=== PATIENT | female | born 1960 | race Caucasian/White ===

== ENCOUNTER 2017-04-04 05:46 | Inpatient (IN) | payer MEDICARE, OTHER ==
[2017-03-28 16:10] VITALS: BMI 29.9
[~2017-04-04 05:46] MED LIST: DEXAMETHASONE SOD PHOSPHATE 10 MG/ML 1 ML VIAL IV ONE; HYDROmorphone 0.5 MG/0.5 ML SYRINGE IVP PRN; LACTATED RINGERS 1,000 ML IV SCH; MIDAZOLAM 2 MG/2 ML VIAL IV PRN; ONDANSETRON 4 MG/2 ML VIAL IVP ONE; SCOPOLAMINE 1.5MG/72HR PATCH TRANSDERM ONE; ceFAZolin IN SWFI 2 GM/20 ML SYRINGE IVP ONE
[2017-04-04] MEDS ORDERED: LIDOCAINE 1% 20 ML VIAL (10MG/ML) FOR IV START INTRADERMA ONE (06:23)
[2017-04-04] MEDS ORDERED: PROPOFOL 10 MG/ML 20 ML VIAL IV ONE (07:25)
[2017-04-04] MEDS ORDERED: fentaNYL (PF) 50 MCG/ML 2 ML AMP ONE (07:25)
[2017-04-04] MEDS ORDERED: LIDOCAINE 1% INJ 10MG/ML (20 ML MDV) ONE (07:25)
[2017-04-04] MEDS ORDERED: ePHEDrine SULFATE/0.9% NACL/PF 50 MG/5 ML SYRINGE IV ONE (07:25)
[2017-04-04] MEDS ORDERED: MIDAZOLAM 2 MG/2 ML VIAL ONE (07:25)
[2017-04-04] MEDS ORDERED: KETOROLAC 30 MG/ML 1 ML VIAL ONE (07:25)
[2017-04-04] MEDS ORDERED: SODIUM CHLORIDE 0.9% 50 ML with ceFAZolin 2,000 MG IV ONE ×2 (07:36)
[2017-04-04] MEDS ORDERED: ceFAZolin 1,000 MG in SODIUM CHLORIDE 0.9% 1,000 ML IRRIGATION ONE (08:10)
[2017-04-04] MEDS ORDERED: BACITRACIN 500 UNIT/GM OINT 28.4 GM TUBE TOPICAL ONE (09:04)
[2017-04-04] MEDS ORDERED: SENNOSIDES-DOCUSATE SODIUM 1 EACH TAB PO PRN (09:25)
[2017-04-04] MEDS ORDERED: HYDROcodone/APAP 5-325MG 1 EACH TAB PO PRN ×2 (09:25)
[2017-04-04] MEDS ORDERED: HYDROmorphone 1 MG/ML 1 ML SYRINGE IVP PRN ×3 (09:25)
[2017-04-04] MEDS ORDERED: ONDANSETRON 4 MG/2 ML VIAL IVP PRN (09:25)
[2017-04-04] MEDS ORDERED: TEMAZEPAM 15 MG CAP PO PRN (09:25)
[2017-04-04] MEDS ORDERED: hydrOXYzine PAMOATE 25 MG CAP PO PRN (09:25)
--- NOTE | 2017-04-04 09:29 | XR ---
Limited left ankle HISTORY: Hardware removal Single intraoperative C-arm image documents the procedure
--- NOTE | 2017-04-04 09:40 | FL ---
Fluoroscopy HISTORY: Hardware removal 1 seconds fluoroscopy time supplied to the referring clinician. 1 intraoperative C-arm images docume nt the procedure. See dictated report from orthopedic surgery.
--- NOTE | 2017-04-04 10:04 | XR ---
EXAMINATION TYPE: XR ankle limited LT DATE OF EXAM: 04/04/2017 CLINICAL HISTORY: Surgical removal of hardware of the left lower extremity. TECHNIQUE: Two views of the left leg are obtained. COMPARISON: None. FINDINGS: Postsurgical changes from hardware removal are seen of a healing right tibial fracture. The re is extensive periosteal reaction and some heterotopic ossification with a single transcortical scr ew remaining. Numerous screw tracks are seen through the distal tibia. Generalized soft tissue swelli ng is noted. Degenerative changes of the hindfoot and midfoot are mild. No new or acute fracture. IMPRESSION: Postoperative changes after surgical removal of hardware transfixing a healing left tibia l fracture.
[2017-04-04] MEDS: LACTATED RINGERS 1,000 ML IV SCH ×2 (10:48→20:13)
[2017-04-04] MEDS: ceFAZolin IN SWFI 2 GM/20 ML SYRINGE IVP SCH ×2 (18:04→23:41)
[2017-04-04] MEDS: prednisoLONE ACETATE 1% OPHTH DROPS 1 ML BTL LEFT EYE SCH (20:13)
[2017-04-04] MEDS: FLUoxetine HCL 20 MG CAP PO SCH (20:13)
[2017-04-04] MEDS: OXYBUTYNIN CHLORIDE 5 MG TAB PO SCH (20:13)
--- NOTE | 2017-04-04 21:28 | CONS ---
CONSULTATION DATE OF CONSULTATION: 04/04/2017 REASON FOR CONSULTATION: Medical management requested by Dr. Whyte. CONSULTATION: This is a pleasant 57-year-old patient. The patient is here after surgery. History is obtained by the 2 sisters at the bedside. The patient has a history of developmental delay, is legally blind. Other chronic stable medical conditions include hypertension, hyperlipidemia, osteoarthritis, hypothyroid and urinary incontinence. The patient in April of last year underwent plate and screw to the left ankle and few weeks ago there was swelling, redness. The patient got treated with antibiotics. Finally today, patient has undergone removal of the plate and screw for osteomyelitis, arthritis. The patient's leg is in a wrap. Pain is controlled. The patient's family states she has got a mental age of probably a 3rd or 4th grader. The patient is able to answer simple questions, sitting up on bed. REVIEW OF SYSTEMS: CONSTITUTIONAL: None. HEENT: Decreased vision. RESPIRATORY: None. CARDIOVASCULAR: None. GASTROINTESTINAL: None. GENITOURINARY: None. MUSCULOSKELETAL: Pain in the joints and as above. DERMATOLOGICAL: As above., HEMATOLOGIC: None. LYMPHATIC: None. PSYCHIATRY: Mental age of elementary school. NEUROLOGICAL: None. Additionally, the patient was still able to walk with a limp before the surgery. PAST HISTORY: Hyperlipidemia, hypertension, osteoarthritis, hypothyroid, developmental delay, legally blind, urinary incontinence. PAST SURGICAL HISTORY: Left eye surgery with implants, left tibia surgery with plates and screws last year. SOCIAL HISTORY: Patient lives at adult foster care in [place]. Does not smoke or drink alcohol. FAMILY HISTORY: COPD. HOME MEDICATIONS: 1. Prednisone 1% eyedrops 1 drop to left eye b.i.d. 2. Ditropan 5 mg p.o. b.i.d. 3. Multivitamin 1 tablet p.o. daily. 4. Claritin 10 mg p.o. daily. 5. Zestoretic 20/25, 1 tablet p.o. daily. 6. Synthroid 112 mcg p.o. daily. 7. Betagan 0.5% 1 drop to both eyes b.i.d. 8. Motrin 800 mg every 6 hours p.r.n. 9. Flonase 2 sprays each nostril daily. 10.Prozac 20 mg q.h.s. ALLERGIES: None. EXAMINATION: Temperature 98, pulse 116, respirations 17, blood pressure 137/74, pulse ox 93% room air. GENERAL APPEARANCE: Average built, BMI 30. Sitting up, comfortable, smiling. EYES: Pupils equal. Conjunctivae normal. HEENT: Oral cavity normal. NECK: JVD not raised. Mass not palpable. RESPIRATORY: Effort normal. LUNGS: Clear. CARDIOVASCULAR: First and second sounds normal. No edema. ABDOMEN: Soft, nontender. Liver and spleen not palpable. LYMPHATIC: No lymph nodes palpable in neck or axillae. PSYCHIATRY: The patient is able answer simple questions. She knows that she is in the hospital, knows she had some kind of surgery, could not tell me the details. EXTREMITIES: Left leg in a dressing. INVESTIGATIONS: No blood work. ASSESSMENT: 1. Left lower extremity ankle osteomyelitis with the plates and screws in place. Now that has been removed. 2. Hyperlipidemia. 3. Essential hypertension. 4. Primary osteoarthritis in different joints. 5. Hypothyroid. 6. Developmental delay since childhood childbirth. 7. Legally blind. 8. Chronic urinary stress incontinence. PLAN: Home medications to be resumed. Will give subcu heparin for DVT prophylaxis. Care was discussed with 2 sisters at the bedside. Thank you, Dr. Whyte. MMODL / IJN: [id number] /
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
[2017-04-04] MEDS: LEVOBUNOLOL HCL BOTH EYES SCH (23:47)
[2017-04-05] MEDS: LEVOTHYROXINE 112 MCG TAB PO SCH (06:16)
[2017-04-05 07:22] LABS: Basophils % (A) 0 %; Eosinophils # (A) 0.1 k/uL (0-0.7); Eosinophils % (A) 1 %; HCT 32.9 % (34.0-46.0); HGB 10.6 gm/dL (11.4-16.0); Lymphocytes # (A) 2.6 k/uL (1.0-4.8); Lymphocytes % (A) 23 %; MCH 29.3 pg (25.0-35.0); MCHC 32.3 g/dL (31.0-37.0); MCV 90.7 fL (80.0-100.0); Mean Platelet Volume 7.1; Monocytes # (A) 0.9 k/uL (0-1.0); Monocytes % (A) 8 %; Neutrophils # (A) 7.8 k/uL (1.3-7.7); Neutrophils % (A) 67 %; Platelet Count 343 k/uL (150-450); RBC 3.62 m/uL (3.80-5.40); RDW 12.8 % (11.5-15.5); WBC 11.6 k/uL (3.8-10.6)
[2017-04-05 07:37] LABS: ALT 61 U/L (9-52); AST 28 U/L (14-36); Albumin 3.4 g/dL (3.5-5.0); Alkaline Phosphatase 65 U/L (38-126); Anion Gap 5 mmol/L; Blood Urea Nitrogen 17 mg/dL (7-17); Calcium 9.6 mg/dL (8.4-10.2); Carbon Dioxide 30 mmol/L (22-30); Chloride 104 mmol/L (98-107); Glucose 113 mg/dL (74-99); Potassium 3.9 mmol/L (3.5-5.1); Sodium 139 mmol/L (137-145); Total Bilirubin 0.3 mg/dL (0.2-1.3)
[2017-04-05 08:02] LABS: C Reactive Protein 9.8 mg/L (<10.0)
[2017-04-05] MEDS: LACTATED RINGERS 1,000 ML IV SCH ×2 (09:08→18:27)
[2017-04-05] MEDS: prednisoLONE ACETATE 1% OPHTH DROPS 1 ML BTL LEFT EYE SCH ×2 (09:09→20:17)
[2017-04-05] MEDS: LISINOPRIL-HCTZ 20-25 MG 1 EACH TAB PO SCH (09:09)
[2017-04-05] MEDS: ceFAZolin IN SWFI 2 GM/20 ML SYRINGE IVP SCH ×2 (09:09→18:27)
[2017-04-05] MEDS: ENOXAPARIN 40 MG/0.4 ML SYRINGE SQ SCH (09:09)
[2017-04-05] MEDS: OXYBUTYNIN CHLORIDE 5 MG TAB PO SCH ×2 (09:10→20:17)
[2017-04-05] MEDS: LEVOBUNOLOL HCL BOTH EYES SCH ×2 (09:11→22:31)
--- NOTE | 2017-04-05 10:25 | P.PN ---
Subjective Progress Note Date: 04/05/17 Principal diagnosis: Posterolateral his left lower leg. Status post removal of hardware and I&D left lower leg. This is a 57-year-old female who is status post removal of hardware and I&D of the left lower leg. The patient is doing well from an orthopedic standpoint. She has no new complaints or concerns today. Objective - Vital Signs Vital signs: Vital Signs Temp 97.7 F 04/05/17 07:00 Pulse 82 04/05/17 07:00 Resp 16 04/05/17 07:00 BP 123/62 04/05/17 07:00 Pulse Ox 98 04/05/17 07:00 Intake & Output 04/04/17 04/05/17 04/05/17 18:59 06:59 18:59 Intake Total 1861 850 Output Total 615 Balance 1246 850 Weight 74.389 kg Intake: IV 901 350 Lactated Ringers 1,000 ml 200 350 @ 100 mls/hr IV .Q10H [facility] Rx#:[id number] Oral 960 500 Output: Urine 600 Estimated Blood Loss 15 Other: Voiding Method Bedside Commode # Voids 1 - Exam This is a pleasant 57-year-old female in no acute distress. She is alert and oriented. Exam of the lower extremities reveals a short leg splint intact on the left. She has full toe motion without difficulty or pain. Neurovascular status to the lower extremities intact. - Labs CBC & Chem 7: 04/05/17 06:53 04/05/17 06:53 Labs: Abnormal Lab Results - Last 24 Hours (Table) 04/05/17 04/05/17 Range/Units 06:53 06:53 WBC 11.6 H (3.8-10.6) k/uL RBC 3.62 L (3.80-5.40) m/uL Hgb 10.6 L (11.4-16.0) gm/dL Hct 32.9 L (34.0-46.0) % Neutrophils # 7.8 H (1.3-7.7) k/uL Glucose 113 H (74-99) mg/dL ALT 61 H (9-52) U/L Total Protein 6.0 L (6.3-8.2) g/dL Albumin 3.4 L (3.5-5.0) g/dL Microbiology - Last 24 Hours (Table) 04/04/17 08:39 Gram Stain - Preliminary Leg - Left Wound Culture - Preliminary 04/04/17 08:39 Gram Stain - Preliminary Leg - Left Wound Culture - Preliminary 04/04/17 08:39 Anaerobic Culture - Preliminary Leg - Left 04/04/17 08:39 Anaerobic Culture - Preliminary Leg - Left Assessment and Plan (1) Infected hardware in left leg Current Visit: Yes Status: Acute Code(s): T84.7XXA - INFECT/INFLM REACT DUE TO OTH INT ORTH PROSTH DEV/GRFT, INIT SNOMED Code(s): 448277457 Plan: The clinical findings are discussed the patient and her nurse. She is to continue IV antibiotics as directed. Continue the current splint. Plain discharge Friday.
[2017-04-05] MEDS: MULTIVITAMINS, THERA 1 EACH TAB PO SCH (14:38)
--- NOTE | 2017-04-05 18:45 | P.PN ---
Progress Note - Text Progress Note Date: 04/05/17 DATE OF SERVICE: 04/05/2017 PRESENTING COMPLAINT: Osteomyelitis/medical management HISTORY OF PRESENT ILLNESS: 57-year-old female with developmental delay is status post plate and screw to the left ankle has recently developed swelling and redness received antibiotic therapy and is now status post removal of plate and screws for osteomyelitis, arthritis. INTERVAL HISTORY: 04/05/2017: Patient seen in follow-up, sitting up in a chair appears comfortable patient has a developmental delay and is legally blind, states she feels good, tolerating her diet up with assistance, last BM prior to admission. REVIEW OF SYSTEMS: Done for constitutional ,cardiovascular, GI, pulmonary with relevant findings as above. CURRENT MEDICATIONS [place], Kefzol, Lovenox 40 mg subcu daily, Prozac 20 mg by mouth at bedtime, Zestoretic 20-25 one pill by mouth daily Dilaudid, Vistaril, Synthroid 112 g by mouth daily, Zofran 4 mg IV push daily, Ditropan 5 mg by mouth twice a day, senna /docusate sodium 2 tablets by mouth at bedtime when necessary, Restoril 15 mg by mouth at bedtime when necessary. PHYSICAL EXAM VITAL SIGNS: Temperature 97.7, pulse 92, respiratory rate 16, blood pressure 121/70, oxygen saturation 97% on room air. GENERAL APPEARANCE: Lying in bed, not in distress. EYES: Pupils equal. Conjunctiva normal. NECK: JVD not raised. Mass not palpable. RESPIRATORY: Respiratory effort normal. Lungs diminished to auscultation. CARDIOVASCULAR: First and second sounds normal. No edema. ABDOMEN: Soft. Liver and spleen not palpable. No tenderness. No mass palpable. PSYCHIATRY: Able to answer simple straightforward questions. Mood and affect appropriate. MUSCULOSKELETAL: Left lower extremity in a dressing. INVESTIGATIONS: White blood cell count 11.6, hemoglobin 10.6, Accu-Cheks noted ALTs 61, ASSESSMENT: -Left lower extremity ankle osteomyelitis with the plates and screws in place. Status post removal. -Hyperlipidemia. -Essential hypertension. -Primary osteoarthritis in different joints. -Hypothyroidism. -Developmental delay since childhood at childbirth. -Legally blind. -Chronic urinary stress incontinence. PLAN: Continue with current medication and treatment plan, PT and OT following. Plan of care discussed at the bedside. We will follow closely. [employer] statement: Patient was seen and examined by nurse practitioner Cande Skinner and all elements of the case discussed with attending Dr. Honeycutt
[2017-04-05] MEDS: FLUoxetine HCL 20 MG CAP PO SCH (20:17)
[2017-04-05] MEDS ORDERED: VANCOMYCIN IV PER PHARMACY 1 EACH MISC MISCELLANE PRN (21:03)
[2017-04-05] MEDS: VANCOMYCIN 1,500 MG in SODIUM CHLORIDE 0.9% 250 ML IVPB SCH (22:29)
--- NOTE | 2017-04-05 23:02 | PN ---
PROGRESS NOTE DATE OF SERVICE: 04/05/2017 ATTENDING NOTE: Patient was seen and examined by me. I discussed with my nurse practitioner, Ms. Skinner. The patient is status post removal of plate and screw from the left ankle which had developed osteomyelitis. The patient's pain is controlled. Tolerating a diet. Sitting up, comfortable. EXAMINATION: Afebrile, pulse 97, respirations 16 blood pressure 101/65. LUNGS: Clear. CARDIOVASCULAR: First and second heart sounds. Sitting up in a chair, comfortable. Dressing on the left leg. INVESTIGATION: Gram stains are pending. White count 11.6, hemoglobin 10.6. ASSESSMENT: Acute osteomyelitis of the left lower extremity, status post plate and screws being removed. The patient is currently on IV cefazolin, being followed by Dr. Devine from infectious disease and care was discussed with the patient. MMJANIEL / TYRONEN: [id number] /
[2017-04-06] MEDS: LACTATED RINGERS 1,000 ML IV SCH ×2 (00:09→12:35)
[2017-04-06] MEDS: LEVOTHYROXINE 112 MCG TAB PO SCH (05:28)
[2017-04-06] MEDS: OXYBUTYNIN CHLORIDE 5 MG TAB PO SCH ×2 (08:59→20:32)
[2017-04-06] MEDS: prednisoLONE ACETATE 1% OPHTH DROPS 1 ML BTL LEFT EYE SCH ×2 (08:59→20:32)
[2017-04-06] MEDS: LISINOPRIL-HCTZ 20-25 MG 1 EACH TAB PO SCH (08:59)
[2017-04-06] MEDS: LEVOBUNOLOL HCL BOTH EYES SCH (09:00)
[2017-04-06] MEDS: ENOXAPARIN 40 MG/0.4 ML SYRINGE SQ SCH (09:00)
--- NOTE | 2017-04-06 09:44 | P.PN ---
Subjective Progress Note Date: 04/06/17 Principal diagnosis: Posterolateral his left lower leg. Status post removal of hardware and I&D left lower leg. This is a 57-year-old female who is status post removal of hardware and I&D of the left lower leg. The patient is doing well from an orthopedic standpoint. She has no new complaints or concerns today. Objective - Vital Signs Vital signs: Vital Signs Temp 98.7 F 04/06/17 06:55 Pulse 78 04/06/17 06:55 Resp 16 04/06/17 06:55 BP 106/61 04/06/17 06:55 Pulse Ox 98 04/06/17 06:55 Intake & Output 04/05/17 04/06/17 04/06/17 18:59 06:59 18:59 Intake Total 540 1000 180 Output Total 600 Balance -60 1000 180 Intake: IV 800 Lactated Ringers 1,000 ml 800 @ 100 mls/hr IV .Q10H [facility] Rx#:[id number] Oral 540 200 180 Output: Urine 600 Other: Voiding Method Bedside Commode # Voids 3 2 # Bowel Movements 1 - Exam This is a pleasant 57-year-old female in no acute distress. She is alert and oriented. Exam of the lower extremities reveals a short leg splint intact on the left. She has full toe motion without difficulty or pain. Neurovascular status to the lower extremities intact. - Labs CBC & Chem 7: 04/05/17 06:53 04/05/17 06:53 Labs: Microbiology - Last 24 Hours (Table) 04/04/17 08:39 Gram Stain - Preliminary Leg - Left Wound Culture - Preliminary 04/04/17 08:39 Gram Stain - Preliminary Leg - Left Wound Culture - Preliminary Assessment and Plan (1) Infected hardware in left leg Current Visit: Yes Status: Acute Code(s): T84.7XXA - INFECT/INFLM REACT DUE TO OTH INT ORTH PROSTH DEV/GRFT, INIT SNOMED Code(s): 760759351 Plan: The clinical findings are discussed the patient and her nurse. She is to continue IV antibiotics as directed. Continue the current splint. Plan discharge Friday.
[2017-04-06] MEDS: MULTIVITAMINS, THERA 1 EACH TAB PO SCH (12:37)
[2017-04-06] MEDS: VANCOMYCIN 1,500 MG in SODIUM CHLORIDE 0.9% 250 ML IVPB SCH (17:40)
--- NOTE | 2017-04-06 18:35 | PN ---
PROGRESS NOTE DATE OF SERVICE: 04/06/17. ATTENDING NOTE: This patient is seen and examined by me. I discussed with my nurse practitioner, Ms. Skinner. The patient is sitting up, comfortable. Pain is controlled. Did tolerate a diet, had a bowel movement. EXAMINATION: Afebrile, pulse 78, respiration 16, blood pressure 106/61, pulse ox 98% on room air. Lungs are clear. CARDIOVASCULAR: First and second sounds normal. Dressing over the left leg. INVESTIGATIONS: No blood work from today. ASSESSMENT: Acute osteomyelitis of left lower extremity, status post plate and screws being removed. The patient is on Vancomycin. MMODL / IJN: [id number] /
--- NOTE | 2017-04-06 20:30 | P.PN ---
Progress Note - Text Progress Note Date: 04/06/17 DATE OF SERVICE: 04/06/2017 PRESENTING COMPLAINT: Osteomyelitis/medical management HISTORY OF PRESENT ILLNESS: 57-year-old female with developmental delay is status post plate and screw to the left ankle has recently developed swelling and redness received antibiotic therapy and is now status post removal of plate and screws for osteomyelitis, arthritis. INTERVAL HISTORY: 04/06/2017: Patient seen in follow-up lying in bed appears comfortable patient had a developmental delay and is blind. States she feels good tolerates her diet up with assistance. Had a BM today Patient awaiting a PICC line placement, which should occur on Friday. 04/05/2017: Patient seen in follow-up, sitting up in a chair appears comfortable patient has a developmental delay and is legally blind, states she feels good, tolerating her diet up with assistance, last BM prior to admission. REVIEW OF SYSTEMS: Done for constitutional ,cardiovascular, GI, pulmonary with relevant findings as above. CURRENT MEDICATIONS [place], Lovenox 40 mg subcu daily, Prozac 20 mg by mouth at bedtime, Zestoretic 20-25 one pill by mouth daily Dilaudid, Vistaril, Synthroid 112 g by mouth daily, Zofran 4 mg IV push daily, Ditropan 5 mg by mouth twice a day, senna / docusate sodium 2 tablets by mouth at bedtime when necessary, Restoril 15 mg by mouth at bedtime when necessary, vancomycin. PHYSICAL EXAM VITAL SIGNS: Temperature 98.7, pulse 78, respirations 16, blood pressure 106/61, oxygen saturation 98% on room air. GENERAL APPEARANCE: Lying in bed, not in distress. EYES: Pupils equal. Conjunctiva normal. NECK: JVD not raised. Mass not palpable. RESPIRATORY: Respiratory effort normal. Lungs diminished to auscultation. CARDIOVASCULAR: First and second sounds normal. No edema. ABDOMEN: Soft. Liver and spleen not palpable. No tenderness. No mass palpable. PSYCHIATRY: Able to answer simple straightforward questions. Mood and affect appropriate. MUSCULOSKELETAL: Left lower extremity with dry dressing. INVESTIGATIONS: No new labs ASSESSMENT: -Left lower extremity ankle osteomyelitis with the plates and screws in place. Status post removal. -Hyperlipidemia. -Essential hypertension. -Primary osteoarthritis in different joints. -Hypothyroidism. -Developmental delay since childhood at childbirth. -Legally blind. -Chronic urinary stress incontinence. PLAN: Continue with current medication and treatment plan, PICC line placement tentatively scheduled for tomorrow, arrangements for antibiotic therapy as an outpatient. PT and OT following. Plan of care discussed at the bedside. We will follow closely. EMBROIDERY FINISHER statement: Patient was seen and examined by nurse practitioner Cande Skinner and all elements of the case discussed with attending Dr. Honeycutt
[2017-04-06] MEDS: LEVOBUNOLOL 0.5% BOTH EYES SCH (20:32)
[2017-04-06] MEDS: FLUoxetine HCL 20 MG CAP PO SCH (20:32)
[2017-04-07] MEDS: LEVOTHYROXINE 112 MCG TAB PO SCH (05:27)
[2017-04-07 07:01] LABS: Basophils % (A) 1 %; Eosinophils # (A) 0.3 k/uL (0-0.7); Eosinophils % (A) 3 %; HGB 10.3 gm/dL (11.4-16.0); Lymphocytes # (A) 2.1 k/uL (1.0-4.8); Lymphocytes % (A) 28 %; MCH 29.5 pg (25.0-35.0); MCHC 32.2 g/dL (31.0-37.0); MCV 91.7 fL (80.0-100.0); Mean Platelet Volume 7.5; Monocytes # (A) 0.6 k/uL (0-1.0); Monocytes % (A) 7 %; Neutrophils # (A) 4.6 k/uL (1.3-7.7); Neutrophils % (A) 60 %; Platelet Count 328 k/uL (150-450); RBC 3.49 m/uL (3.80-5.40); WBC 7.7 k/uL (3.8-10.6)
[2017-04-07 07:09] LABS: Anion Gap 5 mmol/L; Blood Urea Nitrogen 20 mg/dL (7-17); Calcium 9.4 mg/dL (8.4-10.2); Carbon Dioxide 30 mmol/L (22-30); Chloride 105 mmol/L (98-107); Glucose 97 mg/dL (74-99); Potassium 3.9 mmol/L (3.5-5.1); Sodium 140 mmol/L (137-145)
[2017-04-07] MEDS: VANCOMYCIN 1,500 MG in SODIUM CHLORIDE 0.9% 250 ML IVPB SCH ×2 (07:57→22:19)
--- NOTE | 2017-04-07 08:34 | P.DS ---
Providers Date of admission: 04/04/17 05:46 Expected date of discharge: 04/07/17 Attending physician: Jose R Whyte Consults: 04/04/17 09:25 Consult Physician Routine Consulting Provider: Kyle Honeycutt Consult Reason/Comments: medical management Do you want consulting provider notified?: Yes 04/04/17 09:36 Consult Physician Routine Consulting Provider: Ra Devine Consult Reason/Comments: osteomyelitis left tibia, s/p hardware removal Do you want consulting provider notified?: Yes Primary care physician: Christine Burnett - Discharge Diagnosis(es) (1) Status post hardware removal Current Visit: Yes Status: Acute (2) Infected hardware in left leg Current Visit: Yes Status: Acute Hospital Course: This is a 57-year-old female with known history of a distal tibia fracture status post ORIF in [place]. She presented to the office with complaints of ongoing pain to the left leg. Bone scan revealed possible osteomyelitis. After discussion and consideration patient elects to proceed with a removal of hardware. The patient is seen preoperatively by care physician and cleared for surgery. Patient is admitted at [facility] on 04/04/2017 for left leg hardware removal. The procedures performed without complication or sequelae. The patient is doing well postoperatively. Labs and vital signs are stable on day of discharge. On day of discharge patient's dressing and splint is clean dry and intact. There is no drainage noted at this time. There is minimal soft tissue swelling to the left lower extremity. He is able to wiggle her toes. Neurovascular status to the left lower extremity is intact. She is scheduled for a PICC line placement today. IV antibiotics for 6 weeks per infectious disease. Patient is discharged to home with homecare in good condition. The medication reconciliation for accurate list of discharge medications. Pertinent Studies: Laboratory Tests 04/07/17 06:26 WBC 7.7 RBC 3.49 L Hgb 10.3 L Hct 32.0 L Patient Condition at Discharge: Stable Plan - Discharge Summary Discharge Rx Participant: No New Discharge Prescriptions: New HYDROcodone/APAP 5-325MG [[place] 5] 1 - 2 each PO Q4-6H PRN #90 tab PRN Reason: Pain Sennosides-Docusate Sodium [Senokot-S] 2 tab PO DAILY #30 tablet No Action prednisoLONE ACETATE 1% OPHTH [Pred Forte 1%] 1 drops LEFT EYE BID Levothyroxine Sodium [Synthroid] 112 mcg PO DAILY Levobunolol HCl [Betagan 0.5%] 1 drop BOTH EYES BID Oxybutynin Chloride [Ditropan] 5 mg PO BID Lisinopril-Hctz 20-25 mg [Zestoretic 20-25] 1 tab PO DAILY Loratadine [Claritin] 10 mg PO DAILY Multivitamins, Thera [Multivitamin (formulary)] 1 tab PO DAILY FLUoxetine HCL [PROzac] 20 mg PO HS Fluticasone Nasal [place] [Flonase Nasal [place]] 2 spr EA NOSTRIL DAILY Discharge Medication List FLUoxetine HCL [PROzac] 20 mg PO HS 03/28/17 [History] Fluticasone Nasal [place] [Flonase Nasal [place]] 2 spr EA NOSTRIL DAILY 03/28/17 [ History] Levobunolol HCl [Betagan 0.5%] 1 drop BOTH EYES BID 03/28/17 [History] Levothyroxine Sodium [Synthroid] 112 mcg PO DAILY 03/28/17 [History] Lisinopril-Hctz 20-25 mg [Zestoretic 20-25] 1 tab PO DAILY 03/28/17 [History] Loratadine [Claritin] 10 mg PO DAILY 03/28/17 [History] Multivitamins, Thera [Multivitamin (formulary)] 1 tab PO DAILY 03/28/17 [History ] Oxybutynin Chloride [Ditropan] 5 mg PO BID 03/28/17 [History] prednisoLONE ACETATE 1% OPHTH [Pred Forte 1%] 1 drops LEFT EYE BID 03/28/17 [ History] HYDROcodone/APAP 5-325MG [[place] 5] 1 - 2 each PO Q4-6H PRN #90 tab 04/07/17 [Rx] Sennosides-Docusate Sodium [Senokot-S] 2 tab PO DAILY #30 tablet 04/07/17 [Rx] Follow up Appointment(s)/Referral(s): Jose R Whyte DO [Doctor of Osteopathic Medicine] - 10 Days Activity/Diet/Wound Care/Special Instructions: Keep dressing and splint in place until follow up with Dr. Whyte Keep dressing clean and dry Non-weightbearing to the left leg Elevate and ice as needed Follow up with Dr. Whyte in 7-10 days Bring boot to the office (if she has a boot at home) [facility]: [phone] Discharge Disposition: HOME WITH HOME HEALTH SERVICES
--- NOTE | 2017-04-07 08:57 | OP ---
OPERATIVE REPORT DATE OF SERVICE: 04/04/2017 SURGEON: Jose R Whyte DO EXPENDITURE REQUISITION CLERK: Erma William NP PREOPERATIVE DIAGNOSIS:: Osteomyelitis of the left tibia with irritating metal. POSTOPERATIVE DIAGNOSIS:: Osteomyelitis of the left tibia with irritating metal. OPERATION:: Removal of metal loosened plate and screws with debridement, irrigation and antibiotic cement onlay of the tibia. ESTIMATED BLOOD LOSS:: SPECIMEN TAKEN:: PROCEDURE: The patient was taken to operative suite and placed in supine position. General inhalation anesthesia was performed by the department of anesthesiology. A Betadine prep was carried out over the left lower leg from the mid thigh to foot area. Sterile drapes were applied in the usual manner. A pneumatic has been placed and inflated to 350 mmHg. A longitudinal incision was developed over the previous incision at the medial aspect of the tibia. Culture and sensitivity was obtained in the area of the plate. There was an area of chronic fat necrosis. The area was debrided and irrigated copiously with Pulsavac antibiotic solution. The screws were removed from the plate. Plate was removed in its entirely. The anterior posterior screw was not visualized and at this time no plans of removal. The ronguer was utilized in removing devitalized soft tissue along the bone. On completion of the procedure after obtained culture, a methylmethacrylate antibiotic implant was shaped and laid directly on the medial tibial area associated with the previous fixation. The deep fascia was then approximated with #1 Vicryl suture, subcutaneous tissue approximated with 2-0 Vicryl suture. The skin was approximated with 2-0 Vicryl suture in interrupted fashion. Betadine, Adaptic sterile pressure dressing was applied. The posterior splint was initiated. Pneumatic tourniquet was deflated. The patient was transferred to the recovery room in satisfactory postop condition. GROSS PATHOLOGY: There is evidence of irritating metal. Chronic osteomyelitis had been noted. MMODL / IJN: [id number] / [facility] CENTERAmrit
[2017-04-07] MEDS: OXYBUTYNIN CHLORIDE 5 MG TAB PO SCH ×2 (09:06→20:53)
[2017-04-07] MEDS: ENOXAPARIN 40 MG/0.4 ML SYRINGE SQ SCH (09:06)
[2017-04-07] MEDS: LEVOBUNOLOL 0.5% BOTH EYES SCH ×2 (09:06→20:52)
[2017-04-07] MEDS: MULTIVITAMINS, THERA 1 EACH TAB PO SCH (09:06)
[2017-04-07] MEDS: LISINOPRIL-HCTZ 20-25 MG 1 EACH TAB PO SCH (09:06)
[2017-04-07] MEDS: prednisoLONE ACETATE 1% OPHTH DROPS 1 ML BTL LEFT EYE SCH ×2 (09:07→20:53)
--- NOTE | 2017-04-07 17:04 | PN ---
PROGRESS NOTE ATTENDING NOTE: This patient was seen and examined by me. I discussed the case with my nurse practitioner, Ms. Canalesevelinjayleen. Patient is lying in bed, comfortable; tolerating a diet. Had a bowel movement 2 days ago. PHYSICAL EXAMINATION: Afebrile. Pulse 84, respiration 16, blood pressure 128/54, pulse ox 97% on room air. Sitting up, comfortable, smiling. Lungs are clear. CARDIOVASCULAR: First and second sounds normal. Dressing on the left leg. INVESTIGATIONS: White count 7.7, hemoglobin 10.3. Wound cultures are growing MSSA. ASSESSMENT: 1. Acute osteomyelitis of the left tibia, status post plate and screws being removed, with cultures positive for methicillin-sensitive Staphylococcus aureus. 2. Normocytic anemia, probably secondary to osteomyelitis. PLAN: Patient is on vancomycin, being followed by Dr. Devine. Other medication and treatment plan is to continue. MMODL / IJN: [id number] /
--- NOTE | 2017-04-07 19:30 | P.PN ---
Progress Note - Text Progress Note Date: 04/14/17 DATE OF SERVICE: 04/07/2017 PRESENTING COMPLAINT: Left lower extremity infection/medical management HISTORY OF PRESENT ILLNESS: 57-year-old female with developmental delay is status post plate and screw to the left ankle has recently developed swelling and redness received antibiotic therapy and is now status post removal of plate and screws for osteomyelitis, arthritis. INTERVAL HISTORY: 04/07/2017 Patient seen in follow-up lying in bed appears comfortable at a developmental delay and is blind. Tolerating her diet up with assistance. PICC line scheduled to be placed today for extensive antibiotic therapy. Wound cultures positive for MSSA. Vancomycin added per Dr. Devine. 04/06/2017: Patient seen in follow-up lying in bed appears comfortable patient had a developmental delay and is blind. States she feels good tolerates her diet up with assistance. Had a BM today Patient awaiting a PICC line placement, which should occur on Friday. 04/05/2017: Patient seen in follow-up, sitting up in a chair appears comfortable patient has a developmental delay and is legally blind, states she feels good, tolerating her diet up with assistance, last BM prior to admission. REVIEW OF SYSTEMS: Done for constitutional ,cardiovascular, GI, pulmonary with relevant findings as above. CURRENT MEDICATIONS [place], Lovenox 40 mg subcu daily, Prozac 20 mg by mouth at bedtime, Zestoretic 20-25 one pill by mouth daily Dilaudid, Vistaril, Synthroid 112 g by mouth daily, Zofran 4 mg IV push daily, Ditropan 5 mg by mouth twice a day, senna / docusate sodium 2 tablets by mouth at bedtime when necessary, Restoril 15 mg by mouth at bedtime when necessary, vancomycin. PHYSICAL EXAM VITAL SIGNS: Temperature 97.6, pulse 84, respiratory rate 16, blood pressure 128/54, oxygen saturation 97% on room air. GENERAL APPEARANCE: Lying in bed, not in distress. EYES: Pupils equal. Conjunctiva normal. NECK: JVD not raised. Mass not palpable. RESPIRATORY: Respiratory effort normal. Lungs diminished to auscultation. CARDIOVASCULAR: First and second sounds normal. No edema. ABDOMEN: Soft. Liver and spleen not palpable. No tenderness. No mass palpable. PSYCHIATRY: Able to answer simple straightforward questions. Mood and affect appropriate. MUSCULOSKELETAL: Left lower extremity with dry dressing. INVESTIGATIONS: Hemoglobin 10.3, Wound cultures, MSSA ASSESSMENT: -Acute osteomyelitis of the left tibia, status post plate and screws being removed, with cultures positive for methicillin sensitive Staphylococcus aureus. -Normocytic anemia, probably secondary to osteomyelitis -Hyperlipidemia. -Essential hypertension. -Primary osteoarthritis in different joints. -Hypothyroidism. -Developmental delay since childhood at childbirth. -Legally blind. -Chronic urinary stress incontinence. PLAN: Continue with current medication and treatment plan, PICC line placement scheduled for today, arrangements for antibiotic therapy as an outpatient. PT and OT following. Discharge planning next 24-48 hours. Plan of care discussed at the bedside. We will follow closely. SHIPPER statement: Patient was seen and examined by nurse practitioner Cande Skinner and all elements of the case discussed with attending Dr. Honeycutt
[2017-04-07] MEDS: FLUoxetine HCL 20 MG CAP PO SCH (20:53)
[2017-04-08] MEDS: LEVOTHYROXINE 112 MCG TAB PO SCH (05:17)
[2017-04-08] MEDS: LEVOBUNOLOL 0.5% BOTH EYES SCH ×2 (09:06→20:34)
[2017-04-08] MEDS: OXYBUTYNIN CHLORIDE 5 MG TAB PO SCH ×2 (09:06→20:32)
[2017-04-08] MEDS: LISINOPRIL-HCTZ 20-25 MG 1 EACH TAB PO SCH (09:06)
[2017-04-08] MEDS: prednisoLONE ACETATE 1% OPHTH DROPS 1 ML BTL LEFT EYE SCH ×2 (09:07→20:34)
[2017-04-08] MEDS: MULTIVITAMINS, THERA 1 EACH TAB PO SCH (09:07)
[2017-04-08] MEDS: ENOXAPARIN 40 MG/0.4 ML SYRINGE SQ SCH (09:07)
[2017-04-08] MEDS ORDERED: VANCOMYCIN TROUGH DUE 1 EACH MISC MISCELLANE ONE (13:00)
--- NOTE | 2017-04-08 13:01 | PN ---
PROGRESS NOTE DATE OF SERVICE: 04/08/17 PRESENTING COMPLAINT: Left tibia infection. INTERVAL HISTORY: Patient had a left plate and screw to the left tibia removed for osteomyelitis. Pain is controlled. Tolerating a diet. No nausea, vomiting. REVIEW OF SYSTEMS: Done for constitutional, cardiovascular, GI, pulmonary, musculoskeletal; relevant findings as above. CURRENT MEDICATIONS: Reviewed that include Vancomycin. PHYSICAL EXAMINATION: Temperature 96.9, pulse 78, respirations 16, blood pressure 117/59, pulse ox 93% on room air. GENERAL APPEARANCE: Sitting up comfortable, smiling. EYES: Pupils equal, conjunctivae normal. NECK: JVD not raised. Mass not palpable. RESPIRATORY: Effort, lungs are clear. CARDIOVASCULAR: 1st and 2nd heart sounds, no edema. ABDOMEN: Soft, nontender. Liver and spleen not palpable. PSYCHIATRY: Awake, alert, answering questions. MUSCULOSKELETAL: Dressing over the left lower extremity. INVESTIGATIONS: White count 7.7, hemoglobin 10.3. Left lower extremity cultures growing MSSA. ASSESSMENT: 1. Acute osteomyelitis of the left tibia, status post plate and screw being removed. Cultures growing MSSA. 2. Normocytic anemia probably secondary to osteomyelitis. 3. Hyperlipidemia. 4. Essential hypertension. 5. Primary osteoarthritis in different joints. 6. Hypothyroidism. 7. Developmental delay since childhood and . 8. Legally blind. 9. Chronic urinary stress incontinence. PLAN: Continue current medication and treatment plan. Antibiotics were recommended by Dr. Devine. Care was discussed with the patient. Thank you Dr. Whyte. MMARTEM / TYRONEN: [id number] /
[2017-04-08] MEDS: VANCOMYCIN 1,500 MG in SODIUM CHLORIDE 0.9% 250 ML IVPB SCH (15:57)
[2017-04-08] MEDS: FLUoxetine HCL 20 MG CAP PO SCH (20:32)
[2017-04-09] MEDS ORDERED: VANCOMYCIN 1,500 MG in SODIUM CHLORIDE 0.9% 250 ML IVPB SCH (06:00)
[2017-04-09] MEDS: LEVOTHYROXINE 112 MCG TAB PO SCH (06:32)
[2017-04-09] MEDS: ENOXAPARIN 40 MG/0.4 ML SYRINGE SQ SCH (07:33)
--- NOTE | 2017-04-09 08:44 | P.DS ---
Providers Date of admission: 04/04/17 05:46 Expected date of discharge: 04/09/17 Attending physician: Jose R Whyte Consults: 04/04/17 09:25 Consult Physician Routine Consulting Provider: Kyle Honeycutt Consult Reason/Comments: medical management Do you want consulting provider notified?: Yes 04/04/17 09:36 Consult Physician Routine Consulting Provider: Ra Devine Consult Reason/Comments: osteomyelitis left tibia, s/p hardware removal Do you want consulting provider notified?: Yes Primary care physician: Christine Burnett - Discharge Diagnosis(es) (1) Status post hardware removal Current Visit: Yes Status: Acute (2) Infected hardware in left leg Current Visit: Yes Status: Acute Hospital Course: This is a 57-year-old female with known history of a distal tibia fracture status post [place]IF in [place]. She presented to the office with complaints of ongoing pain to the left leg. Bone scan revealed possible osteomyelitis. After discussion and consideration patient elects to proceed with a removal of hardware. The patient is seen preoperatively by care physician and cleared for surgery. Patient is admitted at [facility] on 04/04/2017 for left leg hardware removal. The procedures performed without complication or sequelae. The patient is doing well postoperatively. Labs and vital signs are stable on day of discharge. On day of discharge patient's dressing and splint is clean, dry, and intact. There is no drainage noted at this time. There is minimal soft tissue swelling to the left lower extremity. He is able to wiggle her toes. Neurovascular status to the left lower extremity is intact. She is scheduled for a PICC line placement today. IV antibiotics for 6 weeks per infectious disease. Patient is discharged to home with homecare in good condition. The medication reconciliation for accurate list of discharge medications. Patient Condition at Discharge: Stable Plan - Discharge Summary Discharge Rx Participant: No New Discharge Prescriptions: New HYDROcodone/APAP 5-325MG [[place] 5] 1 - 2 each PO Q4-6H PRN #90 tab PRN Reason: Pain Sennosides-Docusate Sodium [Senokot-S] 2 tab PO DAILY #30 tablet No Action prednisoLONE ACETATE 1% OPHTH [Pred Forte 1%] 1 drops LEFT EYE BID Levothyroxine Sodium [Synthroid] 112 mcg PO DAILY Levobunolol HCl [Betagan 0.5%] 1 drop BOTH EYES BID Oxybutynin Chloride [Ditropan] 5 mg PO BID Lisinopril-Hctz 20-25 mg [Zestoretic 20-25] 1 tab PO DAILY Loratadine [Claritin] 10 mg PO DAILY Multivitamins, Thera [Multivitamin (formulary)] 1 tab PO DAILY FLUoxetine HCL [PROzac] 20 mg PO HS Fluticasone Nasal [place] [Flonase Nasal [place]] 2 spr EA NOSTRIL DAILY Discharge Medication List FLUoxetine HCL [PROzac] 20 mg PO HS 03/28/17 [History] Fluticasone Nasal [place] [Flonase Nasal [place]] 2 spr EA NOSTRIL DAILY 03/28/17 [ History] Levobunolol HCl [Betagan 0.5%] 1 drop BOTH EYES BID 03/28/17 [History] Levothyroxine Sodium [Synthroid] 112 mcg PO DAILY 03/28/17 [History] Lisinopril-Hctz 20-25 mg [Zestoretic 20-25] 1 tab PO DAILY 03/28/17 [History] Loratadine [Claritin] 10 mg PO DAILY 03/28/17 [History] Multivitamins, Thera [Multivitamin (formulary)] 1 tab PO DAILY 03/28/17 [History ] Oxybutynin Chloride [Ditropan] 5 mg PO BID 03/28/17 [History] prednisoLONE ACETATE 1% OPHTH [Pred Forte 1%] 1 drops LEFT EYE BID 03/28/17 [ History] HYDROcodone/APAP 5-325MG [[place] 5] 1 - 2 each PO Q4-6H PRN #90 tab 04/07/17 [Rx] Sennosides-Docusate Sodium [Senokot-S] 2 tab PO DAILY #30 tablet 04/07/17 [Rx] Follow up Appointment(s)/Referral(s): Christine Burnett NPC [Primary Care Provider] - 04/21/17 2:30 pm Jose R Whyte DO [Doctor of Osteopathic Medicine] - 10 Days Activity/Diet/Wound Care/Special Instructions: Wheelchair ordered through [facility]: #[phone] Keep dressing and splint in place until follow up with Dr. Whyte Keep dressing clean and dry Non-weightbearing to the left leg Elevate and ice as needed Follow up with Dr. Whyte in 7-10 days Bring boot to the office (if she has a boot at home) [facility]: [phone] Discharge Disposition: HOME WITH HOME HEALTH SERVICES
[2017-04-09] MEDS: OXYBUTYNIN CHLORIDE 5 MG TAB PO SCH (09:42)
[2017-04-09] MEDS: LISINOPRIL-HCTZ 20-25 MG 1 EACH TAB PO SCH (09:42)
[2017-04-09] MEDS: prednisoLONE ACETATE 1% OPHTH DROPS 1 ML BTL LEFT EYE SCH (09:43)
[2017-04-09] MEDS: LEVOBUNOLOL 0.5% BOTH EYES SCH (09:43)
[2017-04-09] MEDS ORDERED: LIDOCAINE 2% INJ 20 MG/ML SQ ONE (11:21)
--- NOTE | 2017-04-09 12:02 | IR ---
EXAMINATION TYPE: IR cvc insert >=5 years DATE OF EXAM: 04/09/2017 COMPARISON: NONE CLINICAL HISTORY: Infection Needs long-term intravenous access for antibiotics. PROCEDURE: After informed consent, the skin overlying the left basilic vein was localized with ultrasound and no ana lilia to be compressible and patent. An ultrasound image was obtained and submitted on the patient's c álvarez. The overlying skin was prepped and draped and Lidocaine was used for local anesthesia. A skin andre was made with a scalpel. Access was gained to the vein under ultrasound guidance with a 21 gau ge needle and a 0.018 inch wire was advanced. Access site was dilated with Peel-Away sheath and cath eter tailored to the appropriate length and advanced such that the distal tip is at the cavoatrial ju nction. Spot image was obtained verifying placement. Catheter was fixed to the skin with suture and a sterile dressing was placed following hemostasis. Catheter was aspirated and flushed with saline. Patient was discharged in stable condition without complication.Maximal barrier technique is utiliz ed. Ultrasound image is documented on the chart. Ultrasound used with sterile technique. Fluoro time and fluoroscopic images submitted to document procedure: 3 intraoperative C-arm images, 0 .4 minutes fluoroscopy time IMPRESSION: STATUS POST ULTRASOUND AND FLUOROSCOPIC GUIDED PICC LINE PLACEMENT, READY FOR USE. THIS PROCEDURE WAS PERFORMED BY THE UNDERSIGNED.
[2017-04-09] MEDS: MULTIVITAMINS, THERA 1 EACH TAB PO SCH (14:16)
[2017-04-09] MEDS ORDERED: ceFAZolin IN SWFI 2 GM/20 ML SYRINGE IVP SCH (16:00)
[2017-04-09] MEDS ORDERED: ceFAZolin 2,000 MG in DEXTROSE/WATER 1 50ML.BAG IVPB SCH (16:00)
[2017-04-09 16:26] VITALS: BP 105/66; PULSE 90; RESP 18; TEMP 98.1
--- NOTE | 2017-04-09 19:01 | P.PN ---
Progress Note - Text Progress Note Date: 04/09/17 DATE OF SERVICE: 04/09/2017 PRESENTING COMPLAINT: Left lower extremity infection/medical management HISTORY OF PRESENT ILLNESS: 57-year-old female with developmental delay is status post plate and screw to the left ankle has recently developed swelling and redness received antibiotic therapy and is now status post removal of plate and screws for osteomyelitis, arthritis. INTERVAL HISTORY: 04/09/2017: Patient seen in follow-up, lying in bed appears comfortable has a developmental delay and is blind. Currently nothing by mouth for PICC line placement this morning. We'll likely discharge after that. 04/07/2017 Patient seen in follow-up lying in bed appears comfortable at a developmental delay and is blind. Tolerating her diet up with assistance. PICC line scheduled to be placed today for extensive antibiotic therapy. Wound cultures positive for MSSA. Vancomycin added per Dr. Devine. 04/06/2017: Patient seen in follow-up lying in bed appears comfortable patient had a developmental delay and is blind. States she feels good tolerates her diet up with assistance. Had a BM today Patient awaiting a PICC line placement, which should occur on Friday. 04/05/2017: Patient seen in follow-up, sitting up in a chair appears comfortable patient has a developmental delay and is legally blind, states she feels good, tolerating her diet up with assistance, last BM prior to admission. REVIEW OF SYSTEMS: Done for constitutional ,cardiovascular, GI, pulmonary with relevant findings as above. CURRENT MEDICATIONS [place], Lovenox 40 mg subcu daily, Prozac 20 mg by mouth at bedtime, Zestoretic 20-25 one pill by mouth daily Dilaudid, Vistaril, Synthroid 112 g by mouth daily, Zofran 4 mg IV push daily, Ditropan 5 mg by mouth twice a day, senna / docusate sodium 2 tablets by mouth at bedtime when necessary, Restoril 15 mg by mouth at bedtime when necessary, vancomycin. PHYSICAL EXAM VITAL SIGNS: Temperature 97.6, pulse 87, respiratory rate 16, blood pressure 135/80, oxygen saturation 95% on room air. GENERAL APPEARANCE: Lying in bed, not in distress. EYES: Pupils equal. Conjunctiva normal. NECK: JVD not raised. Mass not palpable. RESPIRATORY: Respiratory effort normal. Lungs diminished to auscultation. CARDIOVASCULAR: First and second sounds normal. No edema. ABDOMEN: Soft. Liver and spleen not palpable. No tenderness. No mass palpable. PSYCHIATRY: Able to answer simple straightforward questions. Mood and affect appropriate. MUSCULOSKELETAL: Left lower extremity with dry dressing. INVESTIGATIONS: None new Wound cultures, MSSA ASSESSMENT: -Acute osteomyelitis of the left tibia, status post plate and screws being removed, with cultures positive for methicillin sensitive Staphylococcus aureus. -Normocytic anemia, probably secondary to osteomyelitis -Hyperlipidemia. -Essential hypertension. -Primary osteoarthritis in different joints. -Hypothyroidism. -Developmental delay since childhood at childbirth. -Legally blind. -Chronic urinary stress incontinence. PLAN: Continue with current medication and treatment plan, PICC line placement scheduled for today, arrangements for antibiotic therapy as an outpatient. PT and OT following. Discharge today after procedure. Plan of care discussed at the bedside. We will follow closely. VICE PRESIDENT TAX statement: Patient was seen and examined by nurse practitioner Cande Skinner and all elements of the case discussed with attending Dr. Honeycutt
--- NOTE | 2017-04-09 22:24 | PN ---
PROGRESS NOTE DATE OF SERVICE: 04/09/2017. ATTENDING NOTE: Patient was seen and examined by me. I discussed with my nurse practitioner, Ms. Skinner. The patient doing well, sitting comfortably. EXAMINATION: 97.6, pulse 87, respirations 16 blood pressure 135/80. LUNGS: Clear. CARDIOVASCULAR: First and second sounds normal. ASSESSMENT: Acute osteomyelitis of the left tibia, growing methicillin-sensitive Staphylococcus aureus. PLAN: When I saw the patient this morning, the patient is due to get a PICC line and discharge antibiotics per Dr. Devine. MMODL / IJN: [id number] /
--- NOTE | 2017-05-01 07:46 | CDI ---
In responding to this query, please exercise your independent professional judgment. The [facility] Coding Staff and Clinical Documentation Specialists appreciate your assistance in clarifying documentation, maintaining compliance with coding guidelines, accurately documenting patients condition and capturing severity of illness. The fact that a question is asked does not imply that any particular answer is desired or expected. Communication forms are a method of clarifying documentation and are not made part of the Legal Health Record. Thank you in advance for your clarification. Last Revision, March 2015 Lucia Tate [address] [place] [address] Documentation Clarification Form Date: 05/01/2017 7:38:00 AM From: Odilia Johnson Admit Date: 04/04/2017 5:46:00 AM Patient Name: Anne-Marie Kelsey Visit Number: [id number] Discharge Date: 04/09/17 Discharge Date: ATTENTION: The Clinical Documentation Specialists (CDI) and [facility] Coding Staff appreciate your assistance in clarifying documentation. Please respond to the clarification below the line at the bottom and electronically sign. The CDI & [facility] Coding staff will review the response and follow-up if needed. Please note: Queries are made part of the Legal Health Record. If you have any questions, please contact the author of this message via ITS. Dr. Jose R Whyte Per your operative note, a debridement was performed on the left tibia on 04/04. History/Risk Factors: HTN, hypothyroidism, hyperlipidemia, anemia Clinical Indicators: Osteomyleliits of the left tibia with irritating metal Treatment: Removal of metal loosened plate and screws with debridement, irrigation and antibiotic cement onlay of tibia. Five elements required for accurate and compliant documentation of a debridement : 1. Technique used (e.g., excisional, excised, cutting, etc.) 2. Instrument(s) used (e.g., scalpel, curette, etc.) 3. Nature of the tissue removed (e.g., necrotic, devitalized tissues, non- viable tissue, etc.) 4. Appearance and size of the wound (e.g., down to fresh bleeding tissue, 7cm x 10cm, etc.) 5. Depth of the debridement* (e.g., skin, subcutaneous tissue, fascia, muscle , bone, etc.) In order to capture the severity of condition and code the appropriate procedure could you please document the following: Excisional debridement (the removal of necrotic, devitalized tissue or slough by means of cutting away of tissue) Non-excisional debridement (the removal of necrotic, devitalized tissue or slough by means of flushing, brushing, or washing. (Irrigation) Other; with explanation for clinical findings Unable to determine (no explanation for clinical findings) If you have a question about this query, please contact Macarena Acosta, Syrup Mixer Assistant, Lucia Tate at [phone] between 8am and 5pm. Please continue to document in your progress notes and discharge summary in order to capture severity of illness and risk of mortality. Include clinical findings that support your diagnosis. Last revision, April 2017 GHAZALD
--- NOTE | 2017-05-21 10:42 | CDI ---
Last Revision, April 2017 Documentation Clarification Form Date: 05/01/2017 7:38:00 AM From: Odilia Johnson Admit Date: 04/04/2017 5:46:00 AM Patient Name: Anne-Marie Kelsey Visit Number: [id number] Discharge Date: 04/09/17 ATTENTION: The Clinical Documentation Specialists (CDI) and [facility] Coding Staff appreciate your assistance in clarifying documentation. Please respond to the clarification below the line at the bottom and electronically sign. The CDI & [facility] Coding staff will review the response and follow-up if needed. Please note: Queries are made part of the Legal Health Record. If you have any questions, please contact the author of this message via ITS. Dr. Jose R Whyte Per your operative note, a debridement was performed on the left tibia on 04/04. History/Risk Factors: HTN, hypothyroidism, hyperlipidemia, anemia Clinical Indicators: Osteomyleliits of the left tibia with irritating metal Treatment: Removal of metal loosened plate and screws with debridement, irrigation and antibiotic cement onlay of tibia. Five elements required for accurate and compliant documentation of a debridement : 1. Technique used (e.g., excisional, excised, cutting, etc.) 2. Instrument(s) used (e.g., scalpel, curette, etc.) 3. Nature of the tissue removed (e.g., necrotic, devitalized tissues, non- viable tissue, etc.) 4. Appearance and size of the wound (e.g., down to fresh bleeding tissue, 7cm x 10cm, etc.) 5. Depth of the debridement* (e.g., skin, subcutaneous tissue, fascia, muscle , bone, etc.) In order to capture the severity of condition and code the appropriate procedure could you please document the following: Excisional debridement (the removal of necrotic, devitalized tissue or slough by means of cutting away of tissue) Non-excisional debridement (the removal of necrotic, devitalized tissue or slough by means of flushing, brushing, or washing. (Irrigation) Other; with explanation for clinical findings Unable to determine (no explanation for clinical findings) Please document in your progress notes and discharge summary in order to capture severity of illness and risk of mortality. Include clinical findings that support your diagnosis. FYI: Press F11 to launch patient chart. If you have a question about this query, please contact Macarena Acosta, Attendance Clerk, Lucia Tate at [phone] between 8am and 5pm. Please continue to document in your progress notes and discharge summary in order to capture severity of illness and risk of mortality. Include clinical findings that support your diagnosis. MTDD
--- NOTE | 2017-06-04 09:01 | CDI ---
Last Revision, April 2017 Documentation Clarification Form Date: 05/01/2017 7:38:00 AM From: Odilia Johnson Admit Date: 04/04/2017 5:46:00 AM Patient Name: Anne-Marie Kelsey Visit Number: [id number] Discharge Date: 04/09/17 ATTENTION: The Clinical Documentation Specialists (CDI) and [facility] Coding Staff appreciate your assistance in clarifying documentation. Please respond to the clarification below the line at the bottom and electronically sign. The CDI & [facility] Coding staff will review the response and follow-up if needed. Please note: Queries are made part of the Legal Health Record. If you have any questions, please contact the author of this message via ITS. Dr. Jose R Whyte/Mari William Per your operative note, a debridement was performed on the left tibia on 04/04. Please document if debridement was excisional or nonexcisional. History/Risk Factors: HTN, hypothyroidism, hyperlipidemia, anemia Clinical Indicators: Osteomyleliits of the left tibia with irritating metal Treatment: Removal of metal loosened plate and screws with debridement. "The ronguer was utilized in removing devitalized soft tissue along the bone." In order to capture the severity of condition and code the appropriate procedure could you please document the following: Excisional debridement (the removal of necrotic, devitalized tissue or slough by means of cutting away of tissue) Non-excisional debridement (the removal of necrotic, devitalized tissue or slough by means of flushing, brushing, or washing. (Irrigation) Other; with explanation for clinical findings Unable to determine (no explanation for clinical findings) Please document in your progress notes and discharge summary in order to capture severity of illness and risk of mortality. Include clinical findings that support your diagnosis. FYI: Press F11 to launch patient chart. If you have a question about this query, please contact Macarena Acosta, Amusement Equipment Operator, Lucia Tate at [phone] between 8am and 5pm. Please continue to document in your progress notes and discharge summary in order to capture severity of illness and risk of mortality. Include clinical findings that support your diagnosis. MTDD
== END 2017-04-09 18:15 | disposition home health service (06) | DRG 493 ==
LOC: 2ORMAIN 05:46 → 3SUR 10:00
PROVIDERS: ADMIT Orthopaedic Surgery; ATTEND Orthopaedic Surgery
PROC: 0QPH04Z Removal of Internal Fixation Device from Left Tibia, Open Approach (ICD-10-PCS; 2017-04-04)
PROC: 3E0V329 Introduction of Other Anti-infective into Bones, Percutaneous Approach (ICD-10-PCS; 2017-04-04)
PROC: 0QBH0ZZ Excision of Left Tibia, Open Approach (ICD-10-PCS; 2017-04-04)
PROC: 02HV33Z Insertion of Infusion Device into Superior Vena Cava, Percutaneous Approach (ICD-10-PCS; principal; 2017-04-09 10:45)
PROC: B548ZZA Ultrasonography of Superior Vena Cava, Guidance (ICD-10-PCS; 2017-04-09 10:45)
PROC: B518ZZA Fluoroscopy of Superior Vena Cava, Guidance (ICD-10-PCS; 2017-04-09 10:45)
DX: T84.623A Infection and inflammatory reaction due to internal fixation device of left tibia, initial encounter (principal); M86.162 Other acute osteomyelitis, left tibia and fibula; I10 Essential (primary) hypertension; B95.61 Methicillin susceptible Staphylococcus aureus infection as the cause of diseases classified elsewhere; H54.8 Legal blindness, as defined in USA; E03.9 Hypothyroidism, unspecified; E78.5 Hyperlipidemia, unspecified; N39.3 Stress incontinence (female) (male); R62.50 Unspecified lack of expected normal physiological development in childhood; D64.9 Anemia, unspecified; M19.91 Primary osteoarthritis, unspecified site; Z79.899 Other long term (current) drug therapy; Z96.89 Presence of other specified functional implants; Z79.51 Long term (current) use of inhaled steroids; Y83.1 Surgical operation with implant of artificial internal device as the cause of abnormal reaction of the patient, or of later complication, without mention of misadventure at the time of the procedure
CPT/HCPCS: 36569; 76937; 77001; 80048; 80053; 80202; 84134; 85025; 86140; 87070; 87075; 87077; 87186; 87205

== ENCOUNTER → 2019-04-08 | Outpatient (CLI) | payer MEDICARE, OTHER ==
[2019-04-08 12:10] VITALS: BP 147/93; PULSE 70; RESP 18; TEMP 97.8; BMI 27.6
--- NOTE | 2019-04-08 12:42 | P.GSHP ---
History of Present Illness H&P Date: 04/08/19 Chief Complaint: abnormal mammogram of the left breast Patient is seen in consultation from Christine Burnett for a mammographic abnormality in her left breast. Anne-Marie is a 59-year-old white female presenting from an adult foster care facility for a radiographic abnormality noted in her left breast. [place] [address]. Following this it was recommended that she have repeat views of the left breast. This was for linear calcifications in the upper inner quadrant [place] [address]. This revealed Heterogeneous calcifications for which a stereotactic core biopsy was recommended. She does not feel anything of concern in the breast. She does not complain of any nipple discharge or skin changes. She does not complain of any pain in her breast. She does not drink caffeinated beverages. She does not smoke and is not exposed to secondhand smoke. She does not eat chocolate on a regular basis. She has never had a breast biopsy in the past. She has a guardian. She has been in the adult foster detention for approximately 10 years Family History: none of cancer Hormonal History: menarche: 15 G0 menpause: ? BCP: none hormones: none Past Surgical History: 1. left leg Medical History: patient presents from an adult foster care facility patient pulls her hair out and has alopecia legally blind depression mentally impaired hypothyroid Social History: smoke: none alcohol: none drugs: none - Constitutional Constitutional: Denies chills, Denies fever - EENT Eyes: denies blurred vision, denies pain Ears, nose, mouth and throat: Denies headache, Denies sore throat - Breasts Breasts: bilateral: as per HPI - Cardiovascular Cardiovascular: Denies chest pain, Denies shortness of breath - Respiratory Respiratory: Denies cough, Denies 7 - Gastrointestinal Gastrointestinal: Denies abdominal pain, Denies diarrhea, Denies nausea, Denies vomiting - Genitourinary (Female) Genitourinary: Denies dysuria, Denies hematuria - Menstruation Menstruation: Reports postmenopausal - Musculoskeletal Musculoskeletal: Denies myalgias - Integumentary Integumentary: Denies pruritus, Denies rash - Neurological Neurological: Denies numbness, Denies weakness - Psychiatric Psychiatric: Reports anxiety, Reports depression - Endocrine Comment: hypothyroid Endocrine: Denies fatigue, Denies weight change - Hematologic/Lymphatic Comment: none Hematologic/Lymphatic: Reports as per HPI - Allergic/Immunologic Comment: none Past Medical History Past Medical History: Hyperlipidemia, Hypertension, Osteoarthritis (OA), Thyroid Disorder Additional Past Medical History / Comment(s): "LEGALLY BLIND", DEVELOPMENTALLY DISABLED History of Any Multi-Drug Resistant Organisms: None Reported Additional Past Surgical History / Comment(s): LEFT EYE SURGERY-IMPLANT , LEFT TIBIA SURGERY WITH PLATE AND SCREW Past Anesthesia/Blood Transfusion Reactions: No Reported Reaction Past Psychological History: No Psychological Hx Reported Additional Psychological History / Comment(s): Resides in [facility] home Smoking Status: Never smoker Past Alcohol Use History: None Reported Past Drug Use History: None Reported - Past Family History Mother Family Medical History: COPD Father Family Medical History: Myocardial Infarction ([place]) Medications and Allergies Home Medications Medication Instructions Recorded Confirmed Type FLUoxetine HCL [PROzac] 40 mg PO DAILY 03/28/17 03/31/19 History Levobunolol HCl [Betagan 0.5%] 1 drop BOTH EYES BID 03/28/17 03/31/19 History Levothyroxine Sodium [Synthroid] 100 mcg PO DAILY 03/28/17 03/31/19 History Loratadine [Claritin] 10 mg PO DAILY 03/28/17 03/31/19 History Multivitamins, Thera [Multivitamin 1 tab PO DAILY 03/28/17 03/31/19 History (formulary)] Oxybutynin Chloride [Ditropan] 5 mg PO BID 03/28/17 03/31/19 History prednisoLONE ACETATE 1% OPHTH 1 drops LEFT EYE BID 03/28/17 03/31/19 History [Pred Forte 1%] Atorvastatin [Lipitor] 20 mg PO DAILY 03/31/19 03/31/19 History Codeine Phosphate/Guaifenesin 5 ml PO Q4HR PRN 03/31/19 03/31/19 History [Cheratussin AC Syrup] Iron/Folate 9/Vit C/D3/B6/B12 1 each PO DAILY 03/31/19 03/31/19 History [Nufera Tablet] Losartan/Hydrochlorothiazide 1 tab PO DAILY 03/31/19 03/31/19 History [Losartan-Hctz 100-25 mg Tab] Potassium Chloride [Klor-Con 20] 20 meq PO DAILY 03/31/19 03/31/19 History traZODone HCL 100 mg PO HS 04/08/19 04/08/19 History Allergies Allergy/AdvReac Type Severity Reaction Status Date / Time No Known Allergies Allergy Verified 04/08/19 12:10 Surgical - Exam Vital Signs Temp Pulse Resp BP Pulse Ox 97.8 F 70 18 147/93 92 L 04/08/19 12:06 04/08/19 12:06 04/08/19 12:06 04/08/19 12:06 04/08/19 12:06 BMI 27.6 - General no distress - Eyes blind normal ocular movement - ENT alopecia no hearing loss, no congestion - Neck no masses, trachea midline, no lymphadectomy, no venous distension - Respiratory normal expansion, normal respiratory effort - Cardiovascular Rhythm: regular Heart Sounds: normal: S1, S2 - Abdomen normal bowel sounds Abdomen: soft, non tender, no guarding, no rigid, no rebound - Integumentary alopecia - Neurologic no disoriented, no combative - Musculoskeletal normal gait, normal posture - Psychiatric oriented to time, oriented to person, oriented to place, speech is normal breast exam: Right breast: Multi-positional exam no dominant masses or nodules of concern Right axilla: No adenopathy of concern Left breast: Multi-positional exam no dominant masses or nodules of concern Left axilla: No adenopathy of concern Results Mammogram results reviewed bilateral and additional left breast view Assessment and Plan Assessment: Impression: 1. 59-year-old white female from adult foster care facility who presents with mammographic abnormality in her left breast 2. Legally blind 3. Alopecia:pulls her hair out 4. Prozac 5. mentally impaired 6. hypothyroid Plan 1. sterobiopsy of the left breast 2. medical managment of medical conditions Risk and benfits of the procedure discussed with the patient and her caregiver. These include but are not limited to bleeding, infection, reaction to the anesthetic. We have also discussed that occasionally we cannot find the lesion and the procedure may be rescheduled. They understand and wish to proceed. CC: Dr. Burnett about 30 minutes spent in encounter
--- NOTE | 2019-06-17 13:13 | P.PN ---
Subjective Progress Note Date: 06/17/19 H&P Date: 06-17-19 Chief Complaint: abnormal mammogram of the left breast Patient is seen in consultation from Christine Burnett for a mammographic abnormality in her left breast. Anne-Marie is a 59-year-old white female presenting from an adult foster care facility for a radiographic abnormality noted in her left breast. [place] [id number]. Following this it was recommended that she have repeat views of the left breast. This was for linear calcifications in the upper inner quadrant [place] [address]. This revealed Heterogeneous calcifications for which a stereotactic core biopsy was recommen ded. She does not feel anything of concern in the breast. She does not complain of any nipple discharge or skin changes. She does not complain of any pain in her breast. She does not drink caffeinated beverages. She does not smoke and is not exposed to secondhand smoke. She does not eat chocolate on a regular basis. She had never had a breast biopsy in the past. She has a guardian. She has been in the adult [facility] [place] [facility] for approximately 10 years A stereotactic core biopsy of a 6 cm area of microcalcifications of the left breast was performed on [id number]. 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 This was ER/CO positive. The patient post procedure did not have any complaints. Family History: none of cancer Hormonal History: menarche: 15 G0 menpause: ? BCP: none hormones: none Past Surgical History: 1. left leg Medical History: patient presents from an adult foster care facility patient pulls her hair out and has alopecia legally blind depression mentally impaired hypothyroid Social History: smoke: none alcohol: none drugs: none - Constitutional Constitutional: Denies chills, Denies fever - EENT Eyes: denies blurred vision, denies pain Ears, nose, mouth and throat: Denies headache, Denies sore throat - Breasts Breasts: bilateral: as per HPI - Cardiovascular Cardiovascular: Denies chest pain, Denies shortness of breath - Respiratory Respiratory: Denies cough, Denies 7 - Gastrointestinal Gastrointestinal: Denies abdominal pain, Denies diarrhea, Denies nausea, Denies vomiting - Genitourinary (Female) Genitourinary: Denies dysuria, Denies hematuria - Menstruation Menstruation: Reports postmenopausal - Musculoskeletal Musculoskeletal: Denies myalgias - Integumentary Integumentary: Denies pruritus, Denies rash - Neurological Neurological: Denies numbness, Denies weakness - Psychiatric Psychiatric: Reports anxiety, Reports depression - Endocrine Comment: hypothyroid Endocrine: Denies fatigue, Denies weight change - Hematologic/Lymphatic Comment: none Hematologic/Lymphatic: Reports as per HPI - Allergic/Immunologic Comment: none Past Medical History Past Medical History: Hyperlipidemia, Hypertension, Osteoarthritis (OA), Thyroid Disorder Additional Past Medical History / Comment(s): "LEGALLY BLIND", DEVELOPMENTALLY DISABLED History of Any Multi-Drug Resistant Organisms: None Reported Additional Past Surgical History / Comment(s): LEFT EYE SURGERY-IMPLANT , LEFT TIBIA SURGERY WITH PLATE AND SCREW Past Anesthesia/Blood Transfusion Reactions: No Reported Reaction Past Psychological History: No Psychological Hx Reported Additional Psychological History / Comment(s): Resides in [facility] home Smoking Status: Never smoker Past Alcohol Use History: None Reported Past Drug Use History: None Reported - Past Family History Mother Family Medical History: COPD Father Family Medical History: Myocardial Infarction (MT) Medications and Allergies Home Medications Medication Instructions Recorded Confirmed Type FLUoxetine HCL [PROzac] 40 mg PO DAILY 03/28/17 03/31/19 History Levobunolol HCl [Betagan 0.5%] 1 drop BOTH EYES BID 03/28/17 03/31/19 History Levothyroxine Sodium [Synthroid] 100 mcg PO DAILY 03/28/17 03/31/19 History Loratadine [Claritin] 10 mg PO DAILY 03/28/17 03/31/19 History Multivitamins, Thera [Multivitamin 1 tab PO DAILY 03/28/17 03/31/19 History (formulary)] Oxybutynin Chloride [Ditropan] 5 mg PO BID 03/28/17 03/31/19 History prednisoLONE ACETATE 1% OPHTH 1 drops LEFT EYE BID 03/28/17 03/31/19 History [Pred Forte 1%] Atorvastatin [Lipitor] 20 mg PO DAILY 03/31/19 03/31/19 History Codeine Phosphate/Guaifenesin 5 ml PO Q4HR PRN 03/31/19 03/31/19 History [Cheratussin AC Syrup] Iron/Folate 9/Vit C/D3/B6/B12 1 each PO DAILY 03/31/19 03/31/19 History [Nufera Tablet] Losartan/Hydrochlorothiazide 1 tab PO DAILY 03/31/19 03/31/19 History [Losartan-Hctz 100-25 mg Tab] Potassium Chloride [Klor-Con 20] 20 meq PO DAILY 03/31/19 03/31/19 History traZODone HCL 100 mg PO HS 04/08/19 04/08/19 History Allergies Allergy/AdvReac Type Severity Reaction Status Date / Time No Known Allergies Allergy Verified 04/08/19 12:10 Surgical - Exam Vital Signs Temp Pulse Resp BP Pulse Ox 97.8 F 70 18 147/93 92 L 04/08/19 12:06 04/08/19 12:06 04/08/19 12:06 04/08/19 12:06 04/08/19 12:06 Objective - Vital Signs Vital signs: Vital Signs Temp 97.8 F 04/08/19 12:06 Pulse 70 04/08/19 12:06 Resp 18 04/08/19 12:06 BP 147/93 04/08/19 12:06 Pulse Ox 92 L 04/08/19 12:06 - Exam BMI 27.6 - Constitutional Constitutional Comment(s): alopecia General appearance: Present: average body habitus - EENT EENT Comment(s): blind ENT: Present: hearing grossly normal - Neck Neck: Present: normal ROM - Respiratory Respiratory: bilateral: CTA - Cardiovascular Rhythm: regular Heart sounds: normal: S1, S2 - Gastrointestinal Gastrointestinal Comment(s): no guarding or rebound General gastrointestinal: Present: soft - Integumentary Integumentary Comment(s): alopecia - Neurologic Neurologic Comment(s): No disorientation, no combativeness - Musculoskeletal Musculoskeletal: Present: gait normal - Psychiatric Psychiatric: Present: A&O x's 3, appropriate affect - Allied health notes Allied Health Notes Comment(s): Breast examination Weight breasts: Multi-positional exam no dominant masses or nodules of concern Right axilla: No adenopathy of concern Left breast: Multiple positional exam no dominant masses or notches of concern Left axilla: No adenopathy of concern Assessment and Plan Assessment: Impression: 1. 59-year-old white female from adult foster care facility who presents with mammographic abnormality in her left breast/ stereo biopsy revealed ductal carcinoma in situ grade 3 2. Legally blind 3. Alopecia:pulls her hair out 4. Prozac 5. mentally impaired 6. hypothyroid Plan 1. Bracketed needle localization of area of concern in the left breast with lumpectomy, possible tissue transfer, sentinel node biopsy, possible axillary node dissection. This will most likely be done via eccentric donut mastopexy this was discussed with the patient. 2. medical managment of medical conditions I had a long discussion with the patient, her caregiver, and her legal guardian regarding treatment options. Options range from mastectomy plus or minus reconstruction with sentinel node biopsy plus axillary dissection to lumpectomy plus radiation and sentinel node biopsy possible axillary node dissection. The patient is quite concerned that she does not want to have a mastectomy if possible. Her caregiver and guardian who is her brother were in agreement. The area of concern is a proximally 6 cm in length that appears to be superficial in her breasts are large enough that a lumpectomy would be possible. Radiation therapy would be necessary, they understand this and are willing to accommodate her. Risk of the procedure including bleeding, infection, possible reaction to the anesthetic were discussed. Additionally the possibility of positive margin requiring more surgery after lumpectomy was discussed. Cosmetic deformity with asymmetry of the breast after the procedure was discussed. Risks of axillary dissection including lymphedema, bleeding, infection, numbness of the interim, and injury to the thoracodorsal or long thoracic nerves with a winged scapula were discussed. The patient and her caregiver and guardian in attendance with the discussion. CC: Dr. Burnett
== END ==
LOC: WWCWWP 11:52 → EEVIPCON 12:00
PROVIDERS: ATTEND Surgery
DX: Z53.9 Procedure and treatment not carried out, unspecified reason (principal)

== ENCOUNTER → 2019-04-09 | Day surgery (SDC) | payer MEDICARE, OTHER ==
[2019-04-09 07:34] VITALS: RESP 16; TEMP 97.6; BMI 27.4
--- NOTE | 2019-04-09 08:44 | P.OP ---
Date of Procedure: 04/09/19 Preoperative Diagnosis: Microcalcifications of concern left breast Postoperative Diagnosis: same Procedure(s) Performed: Stereotactic core biopsy left breast Anesthesia: local Surgeon: Eva Piper Estimated Blood Loss (ml): 0.05 Pathology: other (Breast tissue with microcalcifications present) Condition: stable Disposition: same day Indications for Procedure: Heterogeneous calcifications left breast Operative Findings: Microcalcifications noted in biopsy specimen Description of Procedure: The patient is a 58-year-old white female who was noted on mammogram to have new heterogeneous calcifications of concern in the left breast. She was recommended to undergo stereotactic core biopsy. Risks and benefits of the procedure were discussed with the patient and she wished to proceed. Patient was taken to stereotactic core biopsy room. She was position on the stereotactic core biopsy table. A director global intelligence film was obtained. Area of concern was identified. The area was targeted. The breast was prepped using Betadine. 20 mL of 1% lidocaine 10 of which had epinephrine were used to anesthetize the area. The needle was driven to the correct coordinates. The needle was fired. Post fire films revealed the needle being in the correct location. 13 core biopsy specimens were obtained. Radiograph of the specimen revealed calcifications within the specimen. A secure marked top at marker was placed. The patient tolerated the procedure in stable condition. There were additional calcifications in the breast with the scope was felt to be fulfillment representative of the calcifications. The specimen was sent for pathology. The patient will follow- up Dr. Wasserman next week.
[2019-04-09 09:10] VITALS: BP 123/75; PULSE 60
--- NOTE | 2019-04-09 11:22 | MM ---
EXAMINATION TYPE: MG stereo VAD BX LT DATE OF EXAM: 04/09/2019 COMPARISON: Outside diagnostic left breast mammogram dated 03/12/2019 CLINICAL HISTORY: Indeterminate left breast calcifications for which stereotactic guided biopsy is re commended. TECHNIQUE: Stereotactic guided core biopsy of left breast. FINDINGS: The procedure of stereotactic guided core biopsy was explained to the patient. Benefits, a lternatives, and risks were discussed. An informed consent was then obtained. Preprocedural timeout was performed. The shortness pathway for biopsy was chosen to target the upper inner quadrant left breast calcificat ions spanning 2.0 cm. Shortness pathway was CC from above approach. I performed the localization, th en surgeon, Dr. Lux Bell performed the remainder of the procedure. A vacuum assisted biopsy gun wa s used to obtain multiple core samples. The patient tolerated the procedure well without any immediate complication. The patient was kept in the radiology department for short stay after the procedure and then discharged home in stable condi tion. Targeted calcifications are identified in specimen mammogram. Post biopsy mammogram shows the clip to appear in satisfactory position relative to the targeted area of concern on the preprocedure images. IMPRESSION: SUCCESSFUL, UNCOMPLICATED STEREOTACTIC GUIDED CORE BIOPSY OF A GROUP OF CALCIFICATIONS SPANNING 2.0 C M IN THE UPPER INNER QUADRANT OF THE LEFT BREAST, FULL PATHOLOGY RESULTS TO FOLLOW.
== END ==
LOC: RADMAMWWP 06:56
PROVIDERS: ATTEND Surgery
DX: D05.92 Unspecified type of carcinoma in situ of left breast (principal); Z17.0 Estrogen receptor positive status [ER+]
CPT/HCPCS: 88305; 88342; 88341; 19081; A4648; J2001

== ENCOUNTER → 2019-04-16 | Outpatient (CLI) | payer MEDICARE, OTHER ==
[2019-04-16 08:49] VITALS: BP 129/82; PULSE 66; RESP 18; BMI 28.0
--- NOTE | 2019-04-16 09:38 | P.PN ---
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 This was performed on [id number]. Pathology revealed ductal carcinoma in situ nuclear grade 3. This was ER/CT positive. The patient postprocedure does not have any complaints. Of significance is the fact that the patient has a primary caregiver, she is mentally challenged and legally blind. Physical examination: Examination of the left breast reveals mild ecchymosis at the biopsy site, no evidence of infection I have had a long discussion with the patient, her caregiver, and her legal guardian regarding treatment options. Options range from mastectomy plus or minus reconstruction with sentinel node biopsy, possible axillary dissection to lumpectomy plus radiation and sentinel node biopsy possible axillary node dissection. The patient is quite concerned that she does not want to have a mastectomy if possible. Her caregiver and guardian who is her brother were in agreement. The area of concern is approximately 6 cm in length that appears to be superficial and her breasts are large enough that a lumpectomy would be possible. Radiation therapy would be necessary, they understand this and are willing to accommodate her. Risks including bleeding, infection, possible reaction to the anesthetic were discussed. Additionally the possibility of positive margin and requiring more surgery after lumpectomy was performed was discussed. Cosmetic deformity with asymmetry of the breast after the procedure was discussed as well. Risks of axillary dissection including lymphedema, bleeding, infection, numbness of the inner arm, and injury to the thoracodorsal or long thoracic nerves were discussed. With the patient and her caregiver, and guardian in attendance radiation oncology was called. They were sent to see radiation oncology immediately following this appointment. Impression: 1. Left breast ductal carcinoma in situ proximally 6 cm, Stage 0 2. Mentally challenged patient 3. Legally blind 4. Alopecia 5. Hypothyroid Plan: 1. bracheted needle localization of the area of concern in the left breast with lumpectomy, possible tissue transfer, sentinel node biopsy, possible axillary node dissection. This will most likely be done via an ecentric donut mastopexy incision, this was discussed with the patient 2. Medical clearance Greater than 30 minutes spent with the patient and her family, greater than 50% in discussion of coordination of care and planning. Objective - Vital Signs Vital signs: Vital Signs Temp Pulse 66 04/16/19 08:46 Resp 18 04/16/19 08:46 BP 129/82 04/16/19 08:46 Pulse Ox 95 04/16/19 08:46 Intake & Output 04/15/19 04/16/19 04/16/19 18:59 06:59 18:59 Weight 69.4 kg
== END ==
LOC: WWCWWP 08:36
PROVIDERS: ATTEND Surgery
DX: Z53.9 Procedure and treatment not carried out, unspecified reason (principal)

== ENCOUNTER → 2019-06-22 | Day surgery (SDC) | payer MEDICARE, OTHER ==
[~2019-06-22] MED LIST changes: +ALPRAZolam 0.5 MG TAB PO ONE; +HEPARIN SODIUM,PORCINE 5,000 UNIT/ML 1 ML VIAL SQ ONE; +KETOROLAC 30 MG/ML 1 ML VIAL IVP SCH; +LACTATED RINGERS 1,000 ML IV ONE; +LIDOCAINE (PF) 10 MG/ML 2 ML VIAL SQ ONE; +LIDOCAINE 1% (10MG/ML) FOR IV START INTRADERMA PRN; +LIDOCAINE 1% INJ 10MG/ML (20 ML MDV) ONE; +LIDOCAINE 1% INJ 10MG/ML (20 ML MDV) SQ ONE; -MIDAZOLAM 2 MG/2 ML VIAL IV PRN; +MIDAZOLAM 2 MG/2 ML VIAL ONE; +ONDANSETRON 4 MG/2 ML VIAL IVP PRN; +PROPOFOL 10 MG/ML 20 ML VIAL IV ONE; +Pre Op ABX Message 1 EACH MISC MISCELLANE ONE; -SCOPOLAMINE 1.5MG/72HR PATCH TRANSDERM ONE; +SUCCINYLCHOLINE CHLORIDE 100 MG/5 ML SYR IV ONE; +ceFAZolin 1,000 MG VIAL IVPB ONE; -ceFAZolin IN SWFI 2 GM/20 ML SYRINGE IVP ONE; +ePHEDrine SULFATE/0.9% NACL/PF 50 MG/5 ML SYRINGE IV ONE; +fentaNYL (PF) 50 MCG/ML 2 ML AMP ONE
[2019-06-22 11:50] VITALS: RESP 16; TEMP 97.9
--- NOTE | 2019-06-22 13:49 | NM ---
EXAMINATION TYPE: NM sentinel node injection DATE OF EXAM: 06/22/2019 COMPARISON: NONE HISTORY: Left breast cancer with request for sentinel node injection TECHNIQUE AND FINDINGS: The procedure of sentinel lymph node injection was explained to the patient. The benefits, alternatives, and risks were discussed. An informed consent was then obtained. Prepr ocedural timeout was performed. Overlying skin is cleaned with sterile alcohol. Following this, 486 uCi Tc99m Tilmanocept was inject ed in the upper outer aspect of the left nipple intradermally. The patient tolerated the procedure well without any immediate complication. The patient was kept in the radiology department for short stay after the procedure and then taken to surgery for surgical p rocedure what is presumed intraoperative gamma probe will be used for sentinel lymph node detection. IMPRESSION: Left breast radiotracer injection for sentinel node localization as above.
--- NOTE | 2019-06-22 18:08 | P.OP ---
Date of Procedure: 06/22/19 Preoperative Diagnosis: DCIS left breast Postoperative Diagnosis: same Procedure(s) Performed: Left breast needle localization lumpectomy bracketed area, sentinal node biopsy Anesthesia: GEGEA Surgeon: Eva Piper Estimated Blood Loss (ml): 5 IV fluids (ml): 1,000 Pathology: other (Breast tissue, sentinel node) Condition: stable Disposition: same day Indications for Procedure: DCIS on stero biopsy Operative Findings: fibrofatty breast tissue Description of Procedure: 59-year-old white female who presented from a adult [facility] [place] [facility] radiographic abnormality in her left breast. Stereotactic core biopsy revealed ductal carcinoma in situ. The patient wished for a lumpectomy. Risks and benefits of the procedure were discussed with the patient and she wished to proceed. Additionally there was felt that a sentinel node biopsy would be performe. This was discussed with the patient and her career services coordinator and they wish to proceed. The patient was brought to the operating room the area of the left axilla was approached initially. Using the neoprobe an area of increased radioactivity was identified in the axilla. The incision was made over this area and dissection was performed down into the deep axillary tissue. A radioactive lymph node was identified. This was removed using the Harmonic scalpel and the Bovie. The 10 second count on this was approximately 4600. The background count was then obtained which was approximately 34. The wound was well irrigated. The deep tissues were closed using 3-0 Vicryl suture. The skin was closed using 4-0 Monocryl. The patient tolerated this portion of the procedure in stable condition. The area of the breast was then approached. A crescent mastopexy incision was utilized. Skin markings were placed. The area of the crescent was de- epithelialized. The breast parenchyma was injected in a curvilinear fashion. The area bracketed by the 2 guidewires was removed. Radiograph of the specimen revealed that the area of concern had been removed. The specimen was painted prior to this for orientation. Titanium clips were placed for localization of the cavity. The deep tissues were closed using 3-0 Vicryl suture. The skin was closed with 3-0 Vicryl dermal suture followed by a 4-0 Monocryl skin suture. A nylon skin suture was also placed. The patient tolerated procedure in stable condition. All instrument and sponge counts were correct at the end of the case.
--- NOTE | 2019-06-22 18:12 | P.DS ---
Providers Attending physician: Eva Piper Primary care physician: Stated None Plan - Discharge Summary Discharge Rx Participant: No New Discharge Prescriptions: No Action prednisoLONE ACETATE 1% OPHTH [Pred Forte 1%] 1 drops LEFT EYE BID Levothyroxine Sodium [Synthroid] 100 mcg PO QAM Levobunolol HCl [Betagan 0.5%] 1 drop BOTH EYES BID Loratadine [Claritin] 10 mg PO QAM Multivitamins, Thera [Multivitamin (formulary)] 1 tab PO DAILY FLUoxetine HCL [PROzac] 40 mg PO QAM Codeine Phosphate/Guaifenesin [Cheratussin AC Syrup] 5 ml PO Q4HR PRN PRN Reason: Cough Potassium Chloride [Klor-Con 20] 20 meq PO QAM Atorvastatin [Lipitor] 20 mg PO QAM Losartan/Hydrochlorothiazide [Losartan-Hctz 100-25 mg Tab] 1 tab PO QAM Iron/Folate 9/Vit C/D3/B6/B12 [Nufera Tablet] 1 each PO DAILY traZODone HCL 100 mg PO HS PRN PRN Reason: Insomnia Oxybutynin Chloride 5 mg PO BID Fluticasone Nasal [place] [Flonase Nasal [place]] 1 spray NASAL DAILY Albuterol Nebulized (Conc) [Ventolin Nebulized (Conc)] 1 dose INHALATION DAILY PRN PRN Reason: Shortness Of Breath Or Wheezing Discharge Medication List FLUoxetine HCL [PROzac] 40 mg PO QAM 03/28/17 [History] Levobunolol HCl [Betagan 0.5%] 1 drop BOTH EYES BID 03/28/17 [History] Levothyroxine Sodium [Synthroid] 100 mcg PO QAM 03/28/17 [History] Loratadine [Claritin] 10 mg PO QAM 03/28/17 [History] Multivitamins, Thera [Multivitamin (formulary)] 1 tab PO DAILY 03/28/17 [History] prednisoLONE ACETATE 1% OPHTH [Pred Forte 1%] 1 drops LEFT EYE BID 03/28/17 [History] Atorvastatin [Lipitor] 20 mg PO QAM 03/31/19 [History] Codeine Phosphate/Guaifenesin [Cheratussin AC Syrup] 5 ml PO Q4HR PRN 03/31/19 [History] Iron/Folate 9/Vit C/D3/B6/B12 [Nufera Tablet] 1 each PO DAILY 03/31/19 [History] Losartan/Hydrochlorothiazide [Losartan-Hctz 100-25 mg Tab] 1 tab PO QAM 03/31/19 [History] Potassium Chloride [Klor-Con 20] 20 meq PO QAM 03/31/19 [History] traZODone HCL 100 mg PO HS PRN 04/08/19 [History] Albuterol Nebulized (Conc) [Ventolin Nebulized (Conc)] 1 dose INHALATION DAILY PRN 06/17/19 [History] Fluticasone Nasal [place] [Flonase Nasal [place]] 1 spray NASAL DAILY 06/17/19 [History] Oxybutynin Chloride 5 mg PO BID 06/17/19 [History] Follow up Appointment(s)/Referral(s): Eva Piper MD [STAFF PHYSICIAN] - 1 Week Activity/Diet/Wound Care/Special Instructions: may shower after 48 hours wear bra at all times Discharge Disposition: HOME SELF-CARE
[2019-06-22 19:08] VITALS: PULSE 79
[2019-06-22 19:21] VITALS: BP 140/80
--- NOTE | 2019-06-23 07:19 | MM ---
EXAMINATION TYPE: MG pre op loc each addl LT, MG pre op needle loc LT, MG surgical specimen LT DATE OF EXAM: 06/22/2019 COMPARISON: Stereotactic guided biopsy dated 04/09/2019 CLINICAL HISTORY: Biopsy-proven left breast ductal carcinoma in situ TECHNIQUE: Needle localization with wire placement and surgical excision of area of concern in the left breast. FINDINGS: The procedure of needle localization with wire placement and than surgical excision was explained to the patient. Benefits, alternatives, and risks were discussed. An informed consent was then obtained. Preprocedural timeout was performed. The shortest pathway for procedure was chosen. Shortest pathway was CC from above approach. The overlying skin was prepped and draped in usual sterile fashion. 10 cc of 1% lidocaine was used as anesthetic into the skin and subcutaneous tissue up to the level of area of concern. Two 5 cm needles were used. They were placed via a CC from above approach under mammographic guidance. Subsequent 90 degrees mammogram show the needles to be in satisfactory position relative to the targeted area. At this point, wires was placed and the needles were withdrawn. The wires were fixed to patient's skin. Images were marked for surgeon. The patient tolerated the procedure well without any immediate complication. The patient was kept in the radiology department for short stay after the procedure and then taken to surgery for surgical excision. Targeted biopsy marker and calcifications as well as both wires are identified in specimen mammogram. The patient was kept in hospital for short stay after the procedure and then discharged home in stable condition. IMPRESSION: Successful, uncomplicated needle localization with wire placement and surgical excision of targeted biopsy marker and surrounding calcifications in the left breast, full pathology results to follow. Pathology Results: Malignant A. SENTINEL LYMPH NODE #1, BIOPSY: Lymph node negative for metastasis. CK7 and REEMA immunoperoxidase stains are confirmatory (controls appropriate). B. AXILLARY CONTENTS: Two lymph nodes negative for metastasis. C. DE-EPITHELIALIZED TISSUE: Benign skin and subcutaneous tissue. D. LEFT BREAST, LUMPECTOMY: High grade ductal carcinoma in situ (DCIS), margins negative. See Surgical Pathology Cancer Case Summary. Recommendation Surgical consult of the left breast. Continued surgical management. [facility]
== END | disposition home or self-care (01) ==
LOC: OR 10:14
PROVIDERS: ATTEND Surgery
DX: D05.12 Intraductal carcinoma in situ of left breast (principal); E03.9 Hypothyroidism, unspecified; I10 Essential (primary) hypertension; E78.5 Hyperlipidemia, unspecified; E11.9 Type 2 diabetes mellitus without complications; F32.9 Major depressive disorder, single episode, unspecified; F41.9 Anxiety disorder, unspecified; H54.8 Legal blindness, as defined in USA; F79 Unspecified intellectual disabilities; L65.9 Nonscarring hair loss, unspecified; M19.90 Unspecified osteoarthritis, unspecified site; Z78.0 Asymptomatic menopausal state; Z98.890 Other specified postprocedural states; Z82.49 Family history of ischemic heart disease and other diseases of the circulatory system; Z82.5 Family history of asthma and other chronic lower respiratory diseases; Z79.899 Other long term (current) drug therapy; Z79.890 Hormone replacement therapy
CPT/HCPCS: 88305; 88342; 88307; 88341; 76098; 19281; 19282; 38792; 19301; 38525; A9520; J2250; J2001 ×2; J1644; J1100; J2405; J0690; J3010; J0330; J2704

== ENCOUNTER → 2019-10-07 | Outpatient (CLI) | payer MEDICARE, OTHER ==
--- NOTE | 2019-10-07 15:23 | P.PN ---
Subjective Progress Note Date: 10/07/19 Principal diagnosis: Ductal carcinoma in situ Anne-Marie is a 59-year-old white female status post left breast lumpectomy and sentinel node biopsy and 12 82 well. Postoperatively she is doing well with no complaints related to the procedure. Pathology revealed high-grade DCIS yesenia ins were negative. And she had 2 axillary lymph nodes removed negative for metastatic disease. Margins were uninvolved by DCIS. The closest margin was less than 2 mm from the black inked superior and posterior margin. This was reviewed with pathology and it was felt that the margins were indeed negative. Her case was discussed with radiation oncology and they feel that they can treat her even though margins are close. The specimen that was resected was reviewed with radiology as well as the mammogram was felt that all the calcifications of concern had been removed. She finished her radiation in June and has had no complaints. She is taking an antiestrogen/Arimidex. She is doing well with that. She has no complaints at this time. Objective - Vital Signs Vital signs: Vital Signs Temp 97.8 F 10/07/19 15:04 Pulse 87 10/07/19 15:04 Resp 18 10/07/19 15:04 BP 134/85 10/07/19 15:04 Pulse Ox 95 10/07/19 15:04 Intake & Output 10/06/19 10/07/19 10/07/19 18:59 06:59 18:59 Weight 68.039 kg - Constitutional General appearance: Present: average body habitus - EENT Eyes: Present: EOMI ENT: Present: hearing grossly normal - Neck Neck: Present: normal ROM - Respiratory Respiratory: bilateral: CTA - Cardiovascular Rhythm: regular Heart sounds: normal: S1, S2 - Gastrointestinal General gastrointestinal: Present: normal bowel sounds, soft - Integumentary Integumentary Comment(s): alopecia not related to cancer treatment Integumentary: Present: normal turgor - Musculoskeletal Musculoskeletal: Present: gait normal - Psychiatric Psychiatric: Present: A&O x's 3, appropriate affect, intact judgment & insight - Additional findings Additional findings: breast exam: Inspection: Left breast postradiation changes, no evidence of recurrent cancer Palpation: Right breast: multi-positional exam no dominant masses or nodules of concern Right axilla: No adenopathy of concern Left breast: Multiple positional exam well-healed scar from prior surgery, postsurgical changes postradiation changes no evidence of recurrent cancer Left axilla: No adenopathy of concern Assessment and Plan Assessment: Impression: 1. 59-year-old white female from adult foster care facility status post lumpectomy and radiation therapy for left breast ductal carcinoma in situ, patient presently on a Rheumatrex 2. Legally blind 3. Alopecia 4. Mentally impaired 5. Hypothyroid Plan: 1. Patient is doing well at this time continue close surveillance 2. Repeat left breast mammogram 6 months from surgery (December for repeat left mammogram) 3. Continue anastrozole 4. Follow up here in 3 months time CC: Christine Burnett encounter 15 minutes, > 50% of time in planning and counselling Time with Patient: Less than 30
[2019-10-07 16:26] VITALS: BP 134/85; PULSE 87; RESP 18; TEMP 97.8
== END ==
LOC: WWCWWP 14:54
PROVIDERS: ATTEND Surgery
DX: Z53.9 Procedure and treatment not carried out, unspecified reason (principal)

== ENCOUNTER → 2019-12-29 | Outpatient (CLI) | payer MEDICARE, OTHER ==
--- NOTE | 2020-01-04 11:19 | MM ---
Reason for exam: follow-up at short interval from prior study. Last mammogram was performed 9 months ago. History: Patient is postmenopausal and has history of breast cancer at age 59. Malignant MG pre op loc each addl LT of the left breast, June 22, 2019. Malignant MG pre op needle loc LT of the left breast, June 22, 2019. Lumpectomy of the left breast, June 22, 2019. Radiation therapy, 2019. Malignant MG stereo VAD BX LT of the left breast, April 09, 2019. Physical Findings: Nurse Summary: 1.5 x 1cm nodule in the left breast at 10 o'clock (nurse ts). MG 3D Diag Mammo W/Cad LT CC and MLO view(s) were taken of the left breast. Prior study comparison: April 09, 2019, mammogram. August 04, 2017, mammogram. The breast tissue is heterogeneously dense. This may lower the sensitivity of mammography. Post surgical changes left breast. No significant new findings when compared with previous films. These results were verbally communicated with the patient and result sheet given to the patient on 12/29/19. ASSESSMENT: Benign, BI-RAD 2 RECOMMENDATION: Routine screening mammogram of both breasts in 3 months. Back on schedule for March 2020.
== END | disposition home or self-care (01) ==
LOC: RADMAMWWP 13:01
PROVIDERS: ATTEND Surgery
DX: R92.8 Other abnormal and inconclusive findings on diagnostic imaging of breast (principal)
CPT/HCPCS: 77065; G0279; 77061

== ENCOUNTER → 2020-02-24 | Outpatient (CLI) | payer MEDICARE, OTHER ==
[2020-02-24 14:52] VITALS: BP 108/66; PULSE 70; RESP 18; TEMP 97.6
--- NOTE | 2020-02-24 15:13 | P.PN ---
Subjective Progress Note Date: 02/24/20 Principal diagnosis: DCIS left breast Anne-Marie is a 59-year-old white female status post left breast lumpectomy and sentinel node biopsy on . Pathology revealed high-grade DCIS margins were negative. And she had 2 axillary lymph nodes removed negative for metastatic disease. Margins were uninvolved by DCIS. The closest margin was less than 2 mm from the black inked superior and posterior margin. This was reviewed with pathology and it was felt that the margins were indeed negative. Her case was discussed with radiation oncology and they feel that they can treat her even though margins are close. The specimen that was resected was reviewed with radiology as well as the mammogram was felt that all the calcifications of concern had been removed. She finished her radiation in June and has had no complaints. She is taking an antiestrogen/Arimidex. She is doing well with that. She has no complaints at this time. She had a left breast diagnostic mammogram on 87 this was benign BIRADS 2. Family history: Negative Hormonal history: Menarche: 15 She 2 Menopause: Question time With control pills: Negative Hormones: Negative Surgical history: Left leg Left breast lumpectomy and sentinel node biopsy Medical history: Alopecia secondary to pulling her hair out Legally blind Depression Mentally impaired Hypothyroid Social history: Smoke: Negative Alcohol: Negative Drugs: Negative Review of systems: Constitutional: No fever or chills HEENT: Legally blind Breasts: As per HPI Cardiovascular: Negative Pulmonary: Negative Musculoskeletal: Negative Integument: Alopecia Neurologic: Negative Psychiatric: Impaired, denies anxiety denies depression Endocrine: Hypothyroid Hematologic: Negative ALLERGIES: Questionable seasonal ALLERGIES Objective - Vital Signs Vital signs: Vital Signs Temp 97.6 F 02/24/20 14:50 Pulse 70 02/24/20 14:50 Resp 18 02/24/20 14:50 BP 108/66 02/24/20 14:50 Pulse Ox 95 02/24/20 14:50 Intake & Output 02/23/20 02/24/20 02/24/20 18:59 06:59 18:59 Weight 66.224 kg - Exam BMI 26.7 - Constitutional General appearance: Present: average body habitus - EENT Eyes: Present: EOMI ENT: Present: hearing grossly normal - Neck Neck: Present: normal ROM - Respiratory Respiratory: bilateral: CTA - Cardiovascular Rhythm: regular Heart sounds: normal: S1, S2 - Gastrointestinal General gastrointestinal: Present: normal bowel sounds, soft - Integumentary Integumentary: Present: normal turgor - Musculoskeletal Musculoskeletal: Present: gait normal - Psychiatric Psychiatric: Present: A&O x's 3, appropriate affect, intact judgment & insight - Additional findings Additional findings: breast exam: BRA: 38C inspection: Postop changes left breast, bilateral ptosis grade 2/3 Palpation: Right breast: Multiple positional exam no dominant masses or nodules of concern Right axilla: No adenopathy of concern Left breast: Postop changes left breast no dominant masses or nodules of concern fibrocystic changes Left axilla: No adenopathy of concern Assessment and Plan Assessment: Impression: 1. Patient status post left breast lumpectomy and sentinel node biopsy with adjuvant radiation therapy to the left breast, she finished the adjuvant radiation therapy and [id number] 2. No evidence of recurrent left breast cancer 3. Fibrocystic breast changes 4. Patient presently on anastrozole 5. Mentally challenged/legally blind/macular degeneration/hypothyroid/hypertension/hypercholesterolemia/generalized anxiety disorder/depression Plan: 1. Continue anastrozole 2. Continue close surveillance will recommend right breast mammogram 3. Follow-up after right breast mammogram 4. Follow-up for breast cancer surveillance in 4 months CC: Dr. Karie Sepulveda, Dr. Nunez, Dr. Saurabh suarez f25 minutes, > 50% of time in planning and counselling
== END | disposition home or self-care (01) ==
LOC: WWCWWP 14:41
PROVIDERS: ATTEND Surgery
DX: Z53.9 Procedure and treatment not carried out, unspecified reason (principal)

== ENCOUNTER → 2020-03-09 | Outpatient (CLI) | payer MEDICARE, OTHER ==
--- NOTE | 2020-03-09 20:24 | BD ---
EXAMINATION TYPE: Axial Bone Density DATE OF EXAM: 03/09/2020 COMPARISON: NONE CLINICAL HISTORY: 60 YR OLD FEMALE.....ICD-10 CODE: Z79.890 POST MENOPAUSAL Height: 60.8 Weight: 141 FRAX RISK QUESTIONS: History of Fracture in Adulthood: YES RISK FACTORS HISTORY OF: HX OF LT LEG FX AN ADULT Family History of Osteoporosis: UNKNOWN Postmenopausal woman: YES, AT AGE 50 YRS OLD Lost more than 2 inches in height since high school: YES Frequent falls: HANDICAPPED Hyperparathyroidism: NO Adrenal Insufficiency: NO MEDICATIONS: Thyroid Medications: YES, SYNTHROID FOR ABOUT 5 YRS Additional Medications: BP MEDS, HX OF RADIATION, METFORMIN, VIT D, DEALING WITH BREAST CANCER, Additional History: LT BREAST CANCER...MAY 2019, DIABETIC, LUMPECTOMY LT BREAST EXAM MEASUREMENTS: Bone mineral densitometry was performed using the [employer]. Bone mineral density as measured about the Lumbar spine is: ----- L1-L4(G/cm2): 1.305 T Score Values are as follows: ----- L1: 0.1 ----- L2: 0.0 ----- L3: 1.2 ----- L4: 2.5 ----- L1-L4: 1.0 Bone mineral density FIRST BONE DENSITY SCAN......BASELINE STUDY Bone mineral density about the R hip (g/cm2): 1.010 Bone mineral density about the L hip (g/cm2): 0.996 T Score values are as follows: -----R Neck: -1.2 -----L Neck: -1.2 -----R Total: 0.0 -----L Total: -0.1 Bone mineral density BASELINE STUDY FRAX%s: THERE IS A 12.0% CHANCE FOR A MAJOR OSTEOPOROTIC FX AND A 0.8% FOR HIP.....PROBABILITY FOR FX IN 10 YRS TIME IMPRESSION: Osteopenia (T Score between -2.5 and -1). There is slightly increased risk of fracture and the patient may be considered for treatment. Re-Screen 2-5 years. NOTE: T-SCORE=SD OF THE YOUNG ADULT MEAN.
== END | disposition home or self-care (01) ==
LOC: RADBDWWP 09:06
PROVIDERS: ATTEND Internal Medicine Hematology & Oncology
DX: M85.80 Other specified disorders of bone density and structure, unspecified site (principal); C50.212 Malignant neoplasm of upper-inner quadrant of left female breast; Z88.0 Allergy status to penicillin
CPT/HCPCS: 77080

== ENCOUNTER → 2020-06-01 | Outpatient (CLI) | payer MEDICARE, OTHER ==
[2020-06-01 15:44] VITALS: BP 114/81; PULSE 86; RESP 18; TEMP 97.8
--- NOTE | 2020-06-01 16:03 | P.PN ---
Subjective Progress Note Date: 06/01/20 Principal diagnosis: left breast DCIS DCIS left breast Anne-Marie is a 59-year-old white female status [place] [address]. Pathology revealed high-grade DCIS margins were negative. She had 2 axillary lymph nodes removed negative for metastatic disease. Margins were uninvolved by DCIS. The closest margin was less than 2 mm from the black inked superior and posterior margin. This was reviewed with pathology and it was felt that the margins were indeed negative. Her case was discussed with radiation oncology and they feel that they can treat her even though margins are close. The specimen that was resected was reviewed with radiology as well as the mammogram was felt that all the calcifications of concern had been removed. She finished her radiation in June and has had no complaints. She is taking an antiestrogen/Arimidex. She is doing well with that. She has no complaints at this time. She had a left breast diagnostic mammogram on 8520 this was benign BIRADS 2. As per the patient's caregiver she had a bilateral mammogram done at [facility] [address]. The findings were postsurgical changes in the left breast. Six-month follow-up for the left breast is recommended. No comments were made regarding any abnormalities in the right breast. The finding is BIRADS 3 probably benign six-month follow-up left breast. Family history: Negative Hormonal history: Menarche: 15 She 0 Menopause: Question time With control pills: Negative Hormones: Negative Surgical history: Left leg Left breast lumpectomy and sentinel node biopsy Medical history: Alopecia secondary to pulling her hair out Legally blind Depression Mentally impaired Hypothyroid Social history: Smoke: Negative Alcohol: Negative Drugs: Negative Review of systems: Constitutional: No fever or chills HEENT: Legally blind Breasts: As per HPI Cardiovascular: Negative Pulmonary: Negative Musculoskeletal: Negative Integument: Alopecia Neurologic: Negative Psychiatric: Impaired, denies anxiety denies depression Endocrine: Hypothyroid Hematologic: Negative ALLERGIES: Questionable seasonal ALLERGIES Objective - Vital Signs Vital signs: Vital Signs Temp 97.8 F 06/01/20 15:39 Pulse 86 06/01/20 15:39 Resp 18 06/01/20 15:39 BP 114/81 06/01/20 15:39 Pulse Ox 95 06/01/20 15:39 Intake & Output 05/31/20 06/01/2006/01/21 18:59 06:59 18:59 Weight 64.864 kg - Exam BMI 26.8 - Constitutional General appearance: Present: average body habitus - EENT Eyes: Present: EOMI ENT: Present: hearing grossly normal - Neck Neck: Present: normal ROM - Respiratory Respiratory: bilateral: CTA - Cardiovascular Rhythm: regular Heart sounds: normal: S1, S2 - Gastrointestinal General gastrointestinal: Present: soft - Integumentary Integumentary: Present: normal turgor - Musculoskeletal Musculoskeletal: Present: gait normal - Psychiatric Psychiatric: Present: A&O x's 3 - Additional findings Additional findings: breast exam: BRA: sports bra large inspection: bilateral grade 2/3 ptosis, skin changes left breast from surgery palpation: Breasts: Multiple positional exam fibrocystic changes, no dominant masses or nodules of concern Right axilla: No adenopathy of concern Left breast: Multi-positional exam postop changes no dominant masses or nodules of concern Left axilla: No adenopathy of concern Assessment and Plan Assessment: Impression: 1. Left breast DCIS status post lumpectomy and radiation therapy 2. Patient presently on anastrozole 3. No evidence of recurrent cancer 4. Awaiting results of most recent mammogram Plan: 1. Continue anastrozole 2. Follow up here in 6 months time 3. Breast mammogram in 6 months Cc: Dr. Mayra Sepulveda encounter 20 minutes, > 50% of time in planning and counselling
== END | disposition home or self-care (01) ==
LOC: WWCWWP 15:07
PROVIDERS: ATTEND Surgery
DX: Z53.9 Procedure and treatment not carried out, unspecified reason (principal)

== ENCOUNTER → 2021-03-09 | Outpatient (CLI) | payer MEDICARE, OTHER ==
--- NOTE | 2021-03-12 11:00 | MM ---
Reason for exam: screening (asymptomatic). Last mammogram was performed 1 year and 2 months ago. History: Patient is postmenopausal and has history of breast cancer at age 59. Malignant MG pre op loc each addl LT of the left breast, June 22, 2019. Malignant MG pre op needle loc LT of the left breast, June 22, 2019. Lumpectomy of the left breast, June 22, 2019. Radiation therapy, 2019. Malignant MG stereo VAD BX LT of the left breast, April 09, 2019. Physical Findings: A clinical breast exam by your physician is recommended on an annual basis and results should be correlated with mammographic findings. MG 3D Screening Mammo W/Cad Bilateral CC and MLO view(s) were taken. Prior study comparison: December 29, 2019, left breast MG 3d diag mammo w/cad LT. There are scattered fibroglandular densities. Post operative change left breast. ASSESSMENT: Benign, BI-RAD 2 RECOMMENDATION: Routine screening mammogram of both breasts in 1 year.
== END | disposition home or self-care (01) ==
LOC: RADMAMWWP 13:26
PROVIDERS: ATTEND Internal Medicine Hematology & Oncology
DX: Z12.31 Encounter for screening mammogram for malignant neoplasm of breast (principal); Z85.3 Personal history of malignant neoplasm of breast
CPT/HCPCS: 77063; 77067

== ENCOUNTER → 2022-02-21 | Outpatient (CLI) | payer MEDICARE, OTHER ==
--- NOTE | 2022-02-21 17:53 | BD ---
EXAMINATION TYPE: Axial Bone Density DATE OF EXAM: 02/21/2022 COMPARISON: NONE CLINICAL HISTORY: 61 years year old Female. ICD-10 CODE: C50.212 Breast Cancer, Height: 5 FT 2 1/2 IN Weight: 137 FRAX RISK QUESTIONS: Alcohol (3 or more units per day): NO Family History (Parent hip fracture): UNSURE Glucocorticoids (More than 3mos): NO (Ex: prednisone, prednisolone, methylprednisolone, dexamethasone, and hydrocortisone). History of Fracture in Adulthood: YES Secondary Osteoporosis: 1. Type 1 Diabetes: NO 2. Hyperthyroidism: NO 3. Menopause before 45: UNSURE 4. Malnutrition: NO 5. Chronic liver disease: NO Rheumatoid Arthritis: NO Current Tobacco Use: NO RISK FACTORS HISTORY OF: Surgery to Spine/Hip(right/left)/Wrist (right/left): NO Family History of Osteoporosis: NO Active: YES Diet low in dairy products/other sources of calcium: NO Postmenopausal woman: YES Take estrogen and/or progesterone medications: NO Lost more than 2 inches in height since high school: NO Frequent falls: NO Poor Health: GOOD Hyperparathyroidism: NO Adrenal Insufficiency: NO MEDICATIONS: Thyroid Medications: YES Which medication: SYNTHROID How Long: APPROX 10 YEARS Additional Medications: SYNTHROID Additional History: EXAM MEASUREMENTS: Bone mineral densitometry was performed using the [employer]. Bone mineral density as measured about the Lumbar spine is: ----- L1-L4(G/cm2): 1.239 T Score Values are as follows: ----- L1: -0.3 ----- L2: -1.1 ----- L3: 0.8 ----- L4: 2.1 ----- L1-L4: 0.5 2019 UNAVAILABLE FOR COMPARISON Bone mineral density about the R hip (g/cm2): 0.885 Bone mineral density about the L hip (g/cm2): 0.899 T Score values are as follows: -----R Neck: -1.1 -----L Neck: -1.0 -----R Total: -0.2 -----L Total: -0.2 2019 UNAVAILABLE FOR COMPARISON FRAX%s: The graph provided illustrates a 12.4 % chance for a major osteoporotic fx and a 0.8 % chance for the hips probability for fx in 10 years time. IMPRESSION: Normal (Values between +1 and -1 indicate normal bone mass). Consider repeating this study in 5 year s or sooner if there is some new clinical indication. NOTE: T-SCORE=SD OF THE YOUNG ADULT MEAN.
--- NOTE | 2022-02-22 09:05 | MM ---
Reason for Exam: Screening (asymptomatic). Last screening mammogram was performed 11 month(s) ago. Patient History: Menarche at age 14. Postmenopausal. Breast cancer, age 59. Previous chest radiation therapy at age 59. 06/22/2019, Lumpectomy on the Left side. 06/22/2019, Malignant Core Biopsy on the left side. 06/22/2019, Malignant Core Biopsy on the left side. 04/09/2019, Malignant Core Biopsy on the left side. 2019, Radiation Therapy. Prior Study Comparison: 04/09/2019 Screening Mammogram, Unknown. 12/29/2019 Left Diagnostic Mammogram, [facility]. 03/09/2021 Bilateral Screening Mammogram, [facility]. Tissue Density: The breast tissue is heterogeneously dense. This may lower the sensitivity of mammography. Findings: Analyzed By CAD. A few small scattered benign-appearing round calcifications bilaterally are redemonstrated. Stable distortion in the anterior left breast slightly inner aspect with surgical clips from prior treatment. Asymmetrically prominent tissue towards the left axilla redemonstrated. There is no suspicious new group of microcalcifications or new suspicious mass in either breast. Overall Assessment: Benign, BI-RAD 2 Management: Diagnostic Mammogram of both breasts in 1 year. A clinical breast exam by your physician is recommended on an annual basis and results should be correlated with mammographic findings. Electronically signed and approved by: Garrett Mejia M.D.
== END | disposition home or self-care (01) ==
LOC: RADBDWWP 09:55
PROVIDERS: ATTEND Internal Medicine Hematology & Oncology
DX: Z12.31 Encounter for screening mammogram for malignant neoplasm of breast (principal); C50.212 Malignant neoplasm of upper-inner quadrant of left female breast; M85.89 Other specified disorders of bone density and structure, multiple sites; Z78.0 Asymptomatic menopausal state
CPT/HCPCS: 77063; 77067; 77080